=== PATIENT | male | born 1940 | race Caucasian/White ===

== ENCOUNTER 2020-04-17 16:40 | IRF | payer MEDICARE, SELFPAY ==
--- NOTE | ~2020-04-17 | XR_ITS ---
EXAMINATION: XR hip BI 2V w AP pelvis DATE: 04/19/2020 09:53 INDICATION: Bilateral hip pain. TECHNIQUE: An anteroposterior view of the pelvis and 2 views of each hip were obtained. COMPARISON: None. FINDINGS: There is dextrocurvature and severe spondylosis of lumbar spine. No fracture. There is mode rate osteoarthritis of the hips. An electrode overlies the sacrum. Surgical clips in the right upper quadrant are likely from cholecystectomy. IMPRESSION: 1. Moderate osteoarthritis of the hips. Reviewed, dictated and finalized at location A.
[2020-04-17 16:40] VITALS: BP 154/57; PULSE 63; RESP 20; TEMP 37.1; O2SAT 98; BMI 33.7
--- NOTE | 2020-04-17 17:32 | PC.NURSE ---
This patient, Andre Moore, was admitted to [facility] Room 221-01. Patient/family oriented to hospital policies and general routines including ID bracelet, bed and alarms, visiting hours, pain management, procedures, bathroom and other care routines, personal items, smoking policy, room service/diet, and visiting hours. Valuables list has been completed. Information on how to activate the Rapid Response Team has been discussed. Patient/Family are encouraged to report perceived risks to care and to ask questions if they do not understand what they are told or what they should do.
[2020-04-17 17:36] LABS: Glucose Point of Care 141 (65-105)
[2020-04-17 17:50] VITALS: BMI 32.5
[2020-04-17 19:51] LABS: Add Urine Microscopic? YES; Appearance Urine Clear (Clear); Bilirubin Urine Negative (Negative); Blood Urine Negative (Negative); Color Urine Straw (Yellow); Glucose Urine UA Negative (Negative); Ketones Urine Negative (Negative); Leukocyte Esterase Ur Trace LEU/UL (Negative); Nitrate Urine Negative (Negative); Protein Urine Negative (Negative); RBC Urine 0-2 /hpf (0-2); Specific Grav Ur 1.009 (1.001-1.035); Squamous Epithelial Cell Urine Rare /hpf (Few); Urobilinogen Urine Negative mg/dL (<2.0); WBC Urine 0-3 /hpf
[2020-04-17 21:49] LABS: Glucose Point of Care 188 (65-105)
[2020-04-17] MEDS: SERTRALINE HCL 50 MG TABLET 150 MG PO (21:53)
[2020-04-17] MEDS: METOPROLOL TARTRATE 50 MG TAB PO (21:54)
[2020-04-17] MEDS: metFORMIN HCL 500 MG TABLET PO (21:55)
[2020-04-17] MEDS: APIXABAN 5 MG TABLET PO (21:55)
[2020-04-17] MEDS: ATORVASTATIN 40 MG TABLET PO (21:55)
[2020-04-17] MEDS: GABAPENTIN 100 MG CAPSULE 200 MG PO (21:55)
[2020-04-17] MEDS: PRAMIPEXOLE 1 MG TABLET PO (21:55)
[2020-04-17] MEDS: CEFDINIR 300 MG CAPSULE BY MOUTH (21:55)
[2020-04-17 22:00] VITALS: BP 154/60; PULSE 64; RESP 18; TEMP 37.1; O2SAT 97
[2020-04-18 04:56] LABS: Basophils Absolute Auto 0.1 K/mm3 (0.0-0.1); Basophils Percent Auto 0.6 % (0.2-1.2); Eosinophils Absolute Auto 0.5 K/mm3 (0-0.3); Eosinophils Percent Auto 4.8 % (0-4.4); Hemoglobin 13.1 g/dL (14.0-18.0); Immature Granulocyte Absolute 0.08 K/mm3 (0.00-0.031); Immature Granulocyte Percent A 0.9 % (0-0.5); Lymphocytes Absolute Auto 2.22 K/mm3 (0.9-3.2); Lymphocytes Percent Auto 23.8 % (18.3-44.2); Mean Corpuscular Hemoglobin 30.8 pg (26-34); Mean Corpuscular Volume 96.5 fl (80-100); Monocytes Percent Auto 11.1 % (2.6-8.5); Neutrophils Absolute Auto 5.5 K/mm3 (1.3-6.7); Neutrophils Percent Auto 58.8 % (45.5-73.1); Platelet Count Result 147 k/mm3 (150-375); Red Blood Count 4.25 M/mm3 (4.6-6.20); White Blood Count 9.3 K/mm3 (4.5-10.0)
[2020-04-18 05:08] LABS: Blood Urea Nitrogen 48 mg/dL (9-20); Calcium 8.9 mg/dL (8.4-10.2); Carbon Dioxide 21 mmol/L (22-30); Chloride 105 mmol/L (98-107); Cholesterol 120 mg/dL (0-200); Estimated CRCL calculation 41 ml/min; Estimated Glomerular Filt Rate 42; Glucose 194 mg/dL (75-110); HDL Direct 42 mg/dL; Potassium 4.6 mmol/L (3.4-5.0); Sodium 131 mmol/L (137-145); Triglycerides 89 mg/dL (<150)
[2020-04-18 05:12] LABS: Hemoglobin A1C 7.1 % (<5.7)
[2020-04-18 05:19] LABS: LDL Cholesterol Direct 51 mg/dL
[2020-04-18 05:56] LABS: Glucose Point of Care 175 (65-105)
[2020-04-18 06:00] VITALS: BP 144/69; PULSE 57; RESP 18; TEMP 35.9; O2SAT 96
[2020-04-18] MEDS: metFORMIN HCL 500 MG TABLET PO ×2 (09:15→17:44)
[2020-04-18] MEDS: GABAPENTIN 100 MG CAPSULE 200 MG PO ×3 (09:16→17:43)
[2020-04-18] MEDS: lisinopriL 20 MG TABLET PO (09:16)
[2020-04-18] MEDS: ISOSORBIDE MONONITRATE 30 MG TAB.ER.24H BY MOUTH (09:16)
[2020-04-18] MEDS: CEFDINIR 300 MG CAPSULE BY MOUTH ×2 (09:16→22:21)
[2020-04-18] MEDS: APIXABAN 5 MG TABLET PO ×2 (09:16→22:20)
[2020-04-18] MEDS: SENNA/DOCUSATE SODIUM TABLET 1 TAB PO (09:16)
[2020-04-18] MEDS: polyethylene glycoL 3350 17 GM POWD.PACK PO (09:17)
[2020-04-18] MEDS: TOLNAFTATE 1% POWDER 45 GM BTL 1 APPLIC TOPICAL ×2 (09:17→22:23)
[2020-04-18 09:18] VITALS: PULSE 57
[2020-04-18] MEDS: METOPROLOL TARTRATE 50 MG TAB PO ×2 (09:18→22:21)
--- NOTE | 2020-04-18 11:00 | WPDREHABHP ---
H&P: HPI History of Present Illness Chief complaint: CVA Narrative: Andre Moore is a 80 year old male HISTORY OF PRESENT ILLNESS: The patient's primary rehab impairment category is stroke The etiologic diagnosis is ischemic stroke with left-sided hemiparesis I saw this patient [id number] on noon at 11:00 a.m. The patient is a 80-year-old the left-handed male with a prior medical history of paroxysmal atrial fibrillation previously on Eliquis about a year ago, hypertension, hyperlipidemia and TIA in 2019 along with type 2 diabetes mellitus who presented to an outside hospital in April 13, 2020 with possible stroke. The patient reported he was working outside in his yard when he noticed he was having difficulty speaking and left-sided weakness. Head CT ruled out any hemorrhage the patient was unable to get MRI due to metal implants in his bladder. Of note the patient self caths at home. NIH was 6 and received tPA. Then he was transferred to [facility] for further management. CTA showed atherosclerosis of distal internal carotid arteries with stenosis of the P2 segments of both right and left [employer] is but no acute occlusion CTA of the neck showed spondylosis at C4-5. EKG was normal. Neurology was consulted and he was started on aspirin on April 07 and Eliquis and April 15. The home lisinopril was restarted on April 16. He pass the swallowing evaluation he is on a regular texture with thin liquids. The patient was noted to have and a WBC count of 13,500 on April 16 and the patient was starter 7 for UTI. Physical examination reveals moderately severe left-sided weakness where the left upper extremities more involved than the leg left-sided neglect dysarthria which is resolving and balance issues. The rest of in seems like has been switched to cefdinir for few days The patient has not traveled outside the [place] or had contact with someone who is ill that has traveled outside the use in the past 21 days. The patient has not traveled to an area the [place] that is experiencing known transmission of the Coronavirus and has not had close personal contact with anyone that has. The patient does not have a fever. The patient is not experiencing lower respiratory illness symptoms. Therapy was initiated at the acute care facility and the patient transferred to us from [facility] on April 17, 2020 on FALLS OR SURGERIES: The patient has had no major surgeries in the 100 days prior to admission. They had no falls in the past year. They had no falls with injury in the past year. 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 Patient reported that the bedroom and bathrooms are in the main floor. He reported that he has home equipment for straight cane and is wheel walker from total knee replacement a few months ago. FAMILY HISTORY: At this point unknown but I will find out with the patient in my follow-up with her he remembers much about the family history PRIOR LEVEL OF FUNCTION: Eating was INDEPENDENT Oral Care was INDEPENDENT Toileting Hygiene was INDEPENDENT Shower/Bathing was INDEPENDENT Upper Body Dressing was INDEPENDENT Lower Body Dressing was INDEPENDENT Donning/Fossil Footwear was INDEPENDENT Rolling Left and Right was INDEPENDENT Sit t
[2020-04-18 12:07] LABS: Glucose Point of Care 108 (65-105)
[2020-04-18 14:00] VITALS: BP 138/47; PULSE 57; RESP 18; TEMP 37.2; O2SAT 92
--- NOTE | 2020-04-18 14:25 | PCSTNOTE ---
04/18/20: Reported pt. inability to sustain arousal to RN at 13:40 during my attempt to follow-up with pt. after AM evaluation.
[2020-04-18 15:11] VITALS: BMI 32.5
[2020-04-18 17:25] LABS: Glucose Point of Care 123 (65-105)
--- NOTE | 2020-04-18 18:50 | RPD ---
INDIVIDUALIZED PLAN OF CARE FOR Andre Moore Brief Synthesis of Pre-Admission Screen, Post-Admission Evaluation and Therapy Evaluations: The patient presents to rehab with a left ischemic stroke s/p tPA. Comorbidities include paroxysmal atrial fibrillation, left edenilson-paresis, left facial droop, hypertension, hyperlipidemia, type 2 diabetes mellitus, depression, benign prostatic hyperplasia, CAD, chronic kidney disease stage 3, GERD, nephrolithiasis, sleep apnea, obstructive SANTIAGO, restless leg syndrome, major depressive disorder, and peripheral neuropathy.The patient?s needs will be best met in an intensive program vs. at a lower level of care. The patient requires physician services for neurology services, medical oversight, and coordination of care. The patient requires nursing services for frequent neuro checks, anticoagulation therapy, medication management and education, pressure relief and skin care management, monitoring of labs, bowel and bladder training, diabetes management and education, and fall/safety precautions. Deficits include:ADLs, Balance, Endurance, Family Training/Education, Mobility, Pain Management, ROM, Safety, Speech, Strength, and Transfers. Scaler/Case Management for: Discharge Planning and Patient/Family Counseling Physical Therapy: 5 days per week for 90 minutes. Treatments may include: Therapeutic Exercise, Gait Training, Neuromuscular Re-education, Transfer Training, Community Reintegration, Bed Mobility, Patient/Family Education, Wheelchair Mobility Group Therapy/Concurrent Therapy Rationales: -Improve attention span during functional activities in a distracted environment. -Enhance problem solving and/or adequate judgment skills during functional activities in a distracted environment. -Promote increased safety awareness in a distracted environment to reduce fall risk with functional tasks, transfers, and ambulation to allow a more safe, self-sufficient return to the home environment. -Improve dynamic balance skills to promote safety and independence with functional activities in a distracted environment for maximum gain. Occupational Therapy: 5 days per week for 90 minutes. Treatments may include: Therapeutic Exercise, Therapeutic Activity, Cognitive Training, Self-Care Transfer Training, Community Reintegration, Home Management, Patient/Family Education, Wheelchair Mobility Training, Energy Conservation Training Group Therapy/Concurrent Therapy Rationales: -Allow therapist to observe and teach generalization and carry-over of skills learned in individual therapy. -Enhance problem solving and sequencing skills during therapeutic activities in a distracted environment. -Promote increased safety awareness in a realistic setting to reduce fall risk with functional tasks due to visual and verbal distractions. -Increase functional level with ADLs, ADL transfers and use of adaptive equipment through therapeutic activities with others while promoting safety to allow a more safe, self-sufficient return home. Medical Prognosis: Good Anticipated Length of Stay: 10 days Rehab Goals: Eating Goal: 06-Independent Oral Hygiene Goal: 06-Independent Toileting Hygiene Goal: 04-Supervision or Touching Assistance Shower/Bathe Self Goal: 04-Supervision or Touching Assistance Upper Body Dressing Goal: 06-Independent Lower Body Dressing Goal: 04-Supervision or Touching Assistance Putting On/Taking Off Footwear Goal: 04-Supervision or Touching Assistance Rolling Left and Right Goal: 04-Supervision or Touching Assistance Sit to Lying Goal: 05-Setup or Clean Up Assistance Lying to Sitting on Side of Bed Goal: 05-Setup or Clean Up Assistance Sit to Stand Goal: 05-Setup or Clean Up Assistance Chair/[id number]-[id number] Transfer Goal: 04-Supervision or Touching Assistance Toilet Transfer Goal: 04-Supervision or Touching Assistance Car Transfer Goal: 04-Supervision or Touching Assistance Walk 10' Goal: 04-Supervision or Touching Assistance Walk 50'
[2020-04-18 20:00] VITALS: PULSE 66; RESP 20; O2SAT 97
[2020-04-18 22:00] VITALS: BP 124/51; PULSE 54; RESP 20; TEMP 36.9; O2SAT 97
[2020-04-18] MEDS: ATORVASTATIN 40 MG TABLET PO (22:20)
[2020-04-18 22:21] VITALS: PULSE 66
[2020-04-18] MEDS: SERTRALINE HCL 50 MG TABLET 150 MG PO (22:22)
[2020-04-18] MEDS: PRAMIPEXOLE 1 MG TABLET PO (22:22)
[2020-04-18 23:26] LABS: Glucose Point of Care 162 (65-105)
[2020-04-19 06:00] VITALS: BP 126/48; PULSE 62; RESP 18; TEMP 36.7; O2SAT 97
[2020-04-19] MEDS: metFORMIN HCL 500 MG TABLET PO ×2 (06:37→18:24)
[2020-04-19 07:01] LABS: Glucose Point of Care 136 (65-105)
--- NOTE | 2020-04-19 09:16 | PCPTNOTE ---
Andre Moore was evaluated for a wheeled walker on 04/19/2020 by this physical therapist child welfare assistant. The wheeled walker will resolve patient's mobility limitations and will be used for ADL's within the home. The patient can safely use the wheeled walker. ?The wheeled walker will resolve the patient?s mobility deficits, including decreased endurance, strength and impaired balance.
[2020-04-19] MEDS: CEFDINIR 300 MG CAPSULE BY MOUTH (10:00)
[2020-04-19] MEDS: APIXABAN 5 MG TABLET PO ×2 (10:00→20:12)
[2020-04-19] MEDS: SENNA/DOCUSATE SODIUM TABLET 1 TAB PO (10:00)
[2020-04-19 10:01] VITALS: PULSE 62
[2020-04-19] MEDS: polyethylene glycoL 3350 17 GM POWD.PACK PO (10:01)
[2020-04-19] MEDS: ISOSORBIDE MONONITRATE 30 MG TAB.ER.24H BY MOUTH (10:01)
[2020-04-19] MEDS: GABAPENTIN 100 MG CAPSULE 200 MG PO ×3 (10:01→18:23)
[2020-04-19] MEDS: METOPROLOL TARTRATE 50 MG TAB PO ×2 (10:01→20:12)
[2020-04-19] MEDS: lisinopriL 20 MG TABLET PO (10:01)
[2020-04-19] MEDS: TOLNAFTATE 1% POWDER 45 GM BTL 1 APPLIC TOPICAL ×2 (10:02→20:14)
--- NOTE | 2020-04-19 11:33 | WPDNEURORHBP ---
Subjective Date/time seen: 04/19/20 11:33 Interval history: this 80-year-old left-handed gentleman is here after having the right hemispheric stroke with partial dysarthria and aphasic defect along with left-sided hemiparesis he has been complaining of bilateral hip pain which she has had even prior to having had stroke and his confirms that however requesting the x-rays of his bilateral hips which where going to order he denies any headache nausea vomiting chest pain shortness of breath fever chills sore Review of Systems Review of Systems: All systems reviewed & are unremarkable except as noted in HPI and below Functional Status Ambulation Ability Ability to Ambulate 10 Feet: Minimum Assistance X 1 Ability to Ambulate 50 Feet With 2 Turns: Minimum Assistance X 1 Ambulation Assistive Devices: Walker, Wheeled Exam Const: General: comfortable and no acute distress HENMT: General nose exam: Normal nares present Mouth: Yes moist mucous membranes Eyes: General: appearance normal, both eyes and all related structures Neck: Neck: supple and no JVD Resp: Effort & Inspection: normal respiratory effort Auscultation: clear to auscultation bilaterally Cardio: Rate: regular rate Rhythm: regular rhythm GI: GI Palp: Yes Soft to palpation Auscultation: normal bowel sounds Skin: General skin exam: normal color and no rashes or lesions noted Neuro: Other: patient is awake and alert well oriented has dysarthria mixed with the aphasic defect and moderately severe left-sided hemiparesis the range of motions of the hip are little bit painful however more comfortable with comparable examination performed earlier this morning and now but he is going to get the x-rays of his hip since his requested it Extrem: General: normal to inspection Psych: Mental Status: mental status grossly normal Objective Data Vital Signs Vital Signs: Vital Signs - 24 hr 04/18/20 14:00 04/18/20 20:00 04/18/20 22:00 Temperature 37.2 C 36.9 C Pulse Rate 57 L 66 54 L Respiratory Rate 18 20 20 Blood Pressure 138/47 L 124/51 L Pulse Oximetry 92 97 97 04/18/20 22:21 04/19/20 06:00 04/19/20 10:01 Temperature 36.7 C Pulse Rate 66 62 62 Respiratory Rate 18 Blood Pressure 126/48 L Pulse Oximetry 97 Intake/Output Intake/Output: Intake & Output 04/16/20 04/17/20 04/18/20 04/19/20 23:59 23:59 23:59 23:59 Intake Total 480 240 Output Total 1200 7706 7405 Balance -1148 -0231 -107 Meds/Results Medications: Active Medications Generic Name Dose Route Start Last Admin Trade Name Freq PRN Reason Stop Dose Admin Acetaminophen 650 mg 04/18/20 00:11 Tylenol Tablet PO Q4H PRN Pain Rated 1-3 Apixaban 5 mg 04/17/20 21:00 04/19/20 10:00 Eliquis PO 5 mg Q12HR MARVIN Administration Atorvastatin Calcium 40 mg 04/17/20 21:00 04/18/20 22:20 Lipitor PO 40 mg HS MARVIN Administration Gabapentin 200 mg 04/17/20 17:00 04/19/20 10:01 Neurontin PO 200 mg TID MARVIN Administration Glucagon 1 mg 04/17/20 17:29 Glucagon For Inj IM PRN PRN Hypoglycemia Protocol Glucose 15 gm 04/17/20 17:29 Glutose 15 PO PRN PRN Hypoglycemia Protocol Insulin Aspart 2 - 5 units 04/17/20 17:00 04/19/20 06:35 Novolog SUB-Q Not Given TIDWM MARVIN Protocol Isosorbide Mononitrate 30 mg 04/18/20 09:00 04/19/20 10:01 Imdur BY MOUTH 05/18/20 09:01 30 mg DAILY MARVIN Administration Lisinopril 20 mg 04/18/20 09:00 04/19/20 10:01 Prinivil PO 20 mg DAILY MARVIN Administration Metformin HCl 500 mg 04/17/20 17:00 04/19/20 06:37 Glucophage PO 500 mg BIDWM MARVIN Administration Metoprolol Tartrate 50 mg 04/17/20 21:00 04/19/20 10:01 Lopressor PO 50 mg Q12H MARVIN Administration Oxycodone HCl 5 mg 04/18/20 00:12 04/18/20 12:56 Roxicodone Ir Tablet PO 5 mg Q4H PRN Administration Pain Rated 4-10 Polyethylene Glycol 17
[2020-04-19 12:08] LABS: Glucose Point of Care 297 (65-105)
[2020-04-19] MEDS: INSULIN ASPART (*BKC) 100 UNITS/ML SUB-Q (12:47)
[2020-04-19 14:00] VITALS: BP 127/49; PULSE 63; RESP 18; TEMP 36.6; O2SAT 63
--- NOTE | 2020-04-19 15:48 | PCPTNOTE ---
Yoselyn Alicea PTA completed an inpatient rehab wheelchair evaluation on Andre Moore on 04/19/2020. The patient is unable to safely and independently ambulate household distances due to their current impairments. Their diagnosis is CVA with left Hemiparesis and their impairments include decreased strength, decreased endurance, decreased range of motion, decreased balance, lower extremity weakness, and ataxia. [f pt name]'s weight bearing status is weight-bearing as tolerated on the bilateral lower legs. The patient demonstrates significant functional mobility limitations that impair their ability to participate in mobility-related activities of daily living (MRADLs), including toileting, feeding, dressing, grooming, and bathing in the customary locations in the home. These limitations cannot be sufficiently resolved by the use of an appropriately fitted cane or walker. It is recommended that the patient utilize a wheelchair for functional mobility within the home in order to facilitate optimal safety, independence and participation in all MRADL's and adequately access their home environment on a regular basis. The patient's home provides adequate access between rooms, maneuvering space, and surfaces to accommodate the recommended wheelchair. The use of a wheelchair for functional mobility is strongly recommended and the patient is receptive to using the wheelchair. The use of this wheelchair will significantly improve the patient's ability to participate in MRADLS and the patient will use it on a regular basis in the home. This will facilitate optimal safety, independence, and participation. The patient has demonstrated sufficient physical and mental capabilities needed to safely propel a manual wheelchair that is provided in the home during a typical day. Recommended Wheelchair Frame: 20x18 Recommended Wheelchair Size: Standard Recommended Wheelchair Cushion: Standard Wheelchair Leg Recommendations: swing away elevating leg rests -Elevating legrests are recommended because the patient has significant edema of the lower extremities that requires an elevating legrest. - Anti-tippers are recommended due to patient demonstrating increased risk for falls. They would benefit from anti-tippers with added safety and stabilization. Yoselyn Nixon SOCIAL SECRETARY 04/19/2020 Evaluating Therapist Date I agree with and certify that the above recommendation is medically necessary. Referring Physician Date I agree with and certify that the above recommendation is medically necessary. Referring Physician Date
[2020-04-19 17:12] LABS: Glucose Point of Care 149 (65-105)
[2020-04-19] MEDS: SERTRALINE HCL 50 MG TABLET 150 MG PO (20:11)
[2020-04-19] MEDS: PRAMIPEXOLE 1 MG TABLET PO (20:11)
[2020-04-19 20:12] VITALS: PULSE 58
[2020-04-19] MEDS: ATORVASTATIN 40 MG TABLET PO (20:12)
[2020-04-19 22:00] VITALS: BP 130/50; PULSE 50; RESP 18; TEMP 36.5; O2SAT 97
[2020-04-19 22:21] LABS: Glucose Point of Care 176 (65-105)
[2020-04-20] VITALS (8 sets, daily range): BP systolic 126–139; BP diastolic 43–48; PULSE 54–72; RESP 18–22; TEMP 36–36.6; O2SAT 96–97
[2020-04-20 06:04] LABS: Glucose Point of Care 145 (65-105)
[2020-04-20] MEDS: GABAPENTIN 100 MG CAPSULE 200 MG PO ×3 (09:24→17:13)
[2020-04-20] MEDS: SENNA/DOCUSATE SODIUM TABLET 1 TAB PO (09:24)
[2020-04-20] MEDS: ISOSORBIDE MONONITRATE 30 MG TAB.ER.24H BY MOUTH (09:24)
[2020-04-20] MEDS: metFORMIN HCL 500 MG TABLET PO ×2 (09:24→17:14)
[2020-04-20] MEDS: APIXABAN 5 MG TABLET PO ×2 (09:24→20:30)
[2020-04-20] MEDS: TOLNAFTATE 1% POWDER 45 GM BTL 1 APPLIC TOPICAL ×2 (09:25→20:32)
[2020-04-20] MEDS: METOPROLOL TARTRATE 50 MG TAB PO ×2 (09:25→20:29)
[2020-04-20] MEDS: polyethylene glycoL 3350 17 GM POWD.PACK PO (09:25)
[2020-04-20] MEDS: lisinopriL 20 MG TABLET PO (09:25)
[2020-04-20 12:11] LABS: Glucose Point of Care 146 (65-105)
[2020-04-20] MEDS: HYDROCORTISONE 1% 30 GM CREAM 1 APPLIC TOPICAL ×2 (12:26→20:33)
--- NOTE | 2020-04-20 13:21 | WPDNEURORHBP ---
Subjective Date/time seen: 04/20/20 13:21 Interval history: this 80-year-old gentleman is here after having had a right-sided hand hemispheric stroke with mixed aphasia and left-sided hemiparesis the reason being most likely that he is left-handed his hip pain is better controlled however he does have significant osteoarthritis of bilateral hips and also significant is spondylosis of his lumbar spine which is most likely long-standing It does not complain of any headache nausea vomiting chest pain shortness of breath fever chills sore throat Review of Systems Review of Systems: All systems reviewed & are unremarkable except as noted in HPI and below Functional Status Ambulation Ability Ability to Ambulate 10 Feet: Minimum Assistance X 1 Ability to Ambulate 50 Feet With 2 Turns: Minimum Assistance X 1 Ability to Ambulate 150 Feet: Minimum Assistance X 1 Ambulation Assistive Devices: Walker, Wheeled Exam Const: General: comfortable and no acute distress HENMT: General nose exam: Normal nares present Mouth: Yes moist mucous membranes Eyes: General: appearance normal, both eyes and all related structures Neck: Neck: supple and no JVD Resp: Effort & Inspection: normal respiratory effort Auscultation: clear to auscultation bilaterally Cardio: Rate: regular rate Rhythm: regular rhythm Other: occasionally irregularly irregular rhythm GI: GI Palp: Yes Soft to palpation Auscultation: normal bowel sounds Skin: General skin exam: normal color and no rashes or lesions noted Neuro: Other: patient has mixed expressive aphasia and dysarthria with moderately severe left-sided hemiparesis Extrem: General: normal to inspection Psych: Mental Status: mental status grossly normal Objective Data Vital Signs Vital Signs: Vital Signs - 24 hr 04/19/20 14:00 04/19/20 20:12 04/19/20 22:00 Temperature 36.6 C 36.5 C Pulse Rate 63 58 L 50 L Respiratory Rate 18 18 Blood Pressure 127/49 L 130/50 L Pulse Oximetry 63 L 97 04/20/20 06:00 04/20/20 09:25 Temperature 36.0 C L Pulse Rate 62 62 Respiratory Rate 18 Blood Pressure 139/48 L Pulse Oximetry 97 Intake/Output Intake/Output: Intake & Output 04/17/20 04/18/20 04/19/20 04/20/20 23:59 23:59 23:59 23:59 Intake Total 480 720 240 Output Total 1200 2550 3200 4720 Balance -5166 -2231 -8050 -6010 Meds/Results Medications: Active Medications Generic Name Dose Route Start Last Admin Trade Name Freq PRN Reason Stop Dose Admin Acetaminophen 650 mg 04/18/20 00:11 Tylenol Tablet PO Q4H PRN Pain Rated 1-3 Apixaban 5 mg 04/17/20 21:00 04/20/20 09:24 Eliquis PO 5 mg Q12HR MARVIN Administration Atorvastatin Calcium 40 mg 04/17/20 21:00 04/19/20 20:12 Lipitor PO 40 mg HS MARVIN Administration Gabapentin 200 mg 04/17/20 17:00 04/20/20 12:27 Neurontin PO 200 mg TID MARVIN Administration Glucagon 1 mg 04/17/20 17:29 Glucagon For Inj IM PRN PRN Hypoglycemia Protocol Glucose 15 gm 04/17/20 17:29 Glutose 15 PO PRN PRN Hypoglycemia Protocol Hydrocortisone 1 applic 04/20/20 09:35 04/20/20 12:26 Hydrocortisone 1% Cream TOPICAL 1 applic Q12HR MARVIN Administration Insulin Aspart 2 - 5 units 04/17/20 17:00 04/20/20 12:26 Novolog SUB-Q Not Given TIDWM [facility] Protocol Isosorbide Mononitrate 30 mg 04/18/20 09:00 04/20/20 09:24 Imdur BY MOUTH 05/18/20 09:01 30 mg DAILY MARVIN Administration Lisinopril 20 mg 04/18/20 09:00 04/20/20 09:25 Prinivil PO 20 mg DAILY MARVIN Administration Metformin HCl 500 mg 04/17/20 17:00 04/20/20 09:24 Glucophage PO 500 mg BIDWM MARVIN Administration Metoprolol Tartrate 50 mg 04/17/20 21:00 04/20/20 09:25 Lopressor PO 50 mg Q12H MARVIN Administration Oxycodone HCl 5 mg 04/18/20 00:12 04/18/20 12:56 Roxicodone Ir Tablet PO 5 mg Q4H PRN Administration Pain Rated 4-10 Polyethylene Gl
--- NOTE | 2020-04-20 14:48 | PCCCNOTE ---
On 04/20/20, the student, [Neal Montemayor ], provided care and completed [facility] documentation on this patient. I have reviewed the student's documentation and agree with the findings.
[2020-04-20 16:53] LABS: Glucose Point of Care 106 (65-105)
[2020-04-20] MEDS: SERTRALINE HCL 50 MG TABLET 150 MG PO (20:29)
[2020-04-20] MEDS: ATORVASTATIN 40 MG TABLET PO (20:30)
[2020-04-20] MEDS: PRAMIPEXOLE 1 MG TABLET PO (20:31)
[2020-04-20 21:18] LABS: Glucose Point of Care 148 (65-105)
[2020-04-21] VITALS (9 sets, daily range): BP systolic 135–147; BP diastolic 46–65; PULSE 51–88; RESP 16–22; TEMP 35.1–37.1; O2SAT 93–99
[2020-04-21 07:16] LABS: Glucose Point of Care 131 (65-105)
[2020-04-21] MEDS: HYDROCORTISONE 1% 30 GM CREAM 1 APPLIC TOPICAL ×2 (09:21→20:23)
[2020-04-21] MEDS: METOPROLOL TARTRATE 50 MG TAB PO ×2 (09:22→20:24)
[2020-04-21] MEDS: polyethylene glycoL 3350 17 GM POWD.PACK PO (09:22)
[2020-04-21] MEDS: lisinopriL 20 MG TABLET PO (09:22)
[2020-04-21] MEDS: GABAPENTIN 100 MG CAPSULE 200 MG PO ×3 (09:22→17:25)
[2020-04-21] MEDS: ISOSORBIDE MONONITRATE 30 MG TAB.ER.24H BY MOUTH (09:22)
[2020-04-21] MEDS: metFORMIN HCL 500 MG TABLET PO ×2 (09:22→17:26)
[2020-04-21] MEDS: APIXABAN 5 MG TABLET PO ×2 (09:22→20:23)
[2020-04-21] MEDS: TOLNAFTATE 1% POWDER 45 GM BTL 1 APPLIC TOPICAL ×2 (09:23→20:26)
[2020-04-21] MEDS: SENNA/DOCUSATE SODIUM TABLET 1 TAB PO (09:23)
[2020-04-21 12:25] LABS: Glucose Point of Care 114 (65-105)
[2020-04-21 17:15] LABS: Glucose Point of Care 93 (65-105)
[2020-04-21] MEDS: SERTRALINE HCL 50 MG TABLET 150 MG PO (20:23)
[2020-04-21] MEDS: PRAMIPEXOLE 1 MG TABLET PO (20:24)
[2020-04-21] MEDS: ATORVASTATIN 40 MG TABLET PO (20:24)
[2020-04-21 21:24] LABS: Glucose Point of Care 139 (65-105)
[2020-04-22] VITALS (7 sets, daily range): BP systolic 121–177; BP diastolic 58–76; PULSE 52–74; RESP 18–22; TEMP 35.7–36.6; O2SAT 94–97
[2020-04-22 06:48] LABS: Glucose Point of Care 132 (65-105)
[2020-04-22] MEDS: SENNA/DOCUSATE SODIUM TABLET 1 TAB PO (09:13)
[2020-04-22] MEDS: APIXABAN 5 MG TABLET PO ×2 (09:13→21:42)
[2020-04-22] MEDS: GABAPENTIN 100 MG CAPSULE 200 MG PO ×3 (09:13→17:13)
[2020-04-22] MEDS: metFORMIN HCL 500 MG TABLET PO ×2 (09:13→17:13)
[2020-04-22] MEDS: lisinopriL 20 MG TABLET PO (09:14)
[2020-04-22] MEDS: METOPROLOL TARTRATE 50 MG TAB PO ×2 (09:14→21:43)
[2020-04-22] MEDS: ISOSORBIDE MONONITRATE 30 MG TAB.ER.24H BY MOUTH (09:14)
[2020-04-22] MEDS: polyethylene glycoL 3350 17 GM POWD.PACK PO (09:14)
[2020-04-22] MEDS: HYDROCORTISONE 1% 30 GM CREAM 1 APPLIC TOPICAL ×2 (09:15→21:43)
[2020-04-22] MEDS: TOLNAFTATE 1% POWDER 45 GM BTL 1 APPLIC TOPICAL ×2 (09:15→21:44)
--- NOTE | 2020-04-22 12:44 | WPDNEURORHBP ---
Subjective Date/time seen: 04/22/20 12:44 left hemiparesis with mixed dysphasia, spondylosis and bilateral hip arthritis Review of Systems Review of Systems: All systems reviewed & are unremarkable except as noted in HPI and below Functional Status Ambulation Ability Ability to Ambulate 10 Feet: Contact Guard Ability to Ambulate 50 Feet With 2 Turns: Contact Guard Ability to Ambulate 150 Feet: Contact Guard Ambulation Assistive Devices: Walker, Wheeled Exam Const: General: cooperative, comfortable and no acute distress HENMT: General nose exam: No nasal discharge present Mouth: Yes Normal oral and palatal mucosa present and Yes tongue normal Eyes: General: appearance normal, both eyes and all related structures Resp: Effort & Inspection: normal respiratory effort and able to speak in complete sentences Auscultation: clear to auscultation bilaterally Cardio: Rate: regular rate Rhythm: regular rhythm GI: Auscultation: normal bowel sounds Skin: General skin exam: no rashes or lesions noted Neuro: General: patient oriented x3 and moves all extremities Cranial nerves: Yes Equal, round and reactive pupils present, Yes Bilaterally intact EOM present and Yes Nystagmus not present Speech: dysarthria and Receptive aphasia present (mixed) Gait exam (Neuro): Unable to assess gait Motor exam (neuro): Abnormal motor strength present (left hemiparesis) Extrem: General: normal to inspection Psych: Appearance: grossly normal Objective Data Vital Signs Vital Signs: Vital Signs - 24 hr 04/21/20 14:00 04/21/20 20:24 04/21/20 21:24 Temperature 37.1 C Pulse Rate 88 88 51 L Respiratory Rate 20 17 Blood Pressure 147/65 H Pulse Oximetry 97 96 04/21/20 22:00 04/22/20 06:00 04/22/20 09:14 Temperature 36.6 C 36.0 C L Pulse Rate 65 74 74 Respiratory Rate 16 22 H Blood Pressure 135/46 L 151/76 H Pulse Oximetry 96 96 Intake/Output Intake/Output: Intake & Output 04/19/20 04/20/20 04/21/20 04/22/20 23:59 23:59 23:59 23:59 Intake Total 016 211 7887 960 Output Total 2172 5893 9455 7405 Zqzqryp -9710 -9050 -8370 -1640 Meds/Results Medications: Active Medications Generic Name Dose Route Start Last Admin Trade Name Freq PRN Reason Stop Dose Admin Acetaminophen 650 mg 04/18/20 00:11 Tylenol Tablet PO Q4H PRN Pain Rated 1-3 Apixaban 5 mg 04/17/20 21:00 04/22/20 09:13 Eliquis PO 5 mg Q12HR MARVIN Administration Atorvastatin Calcium 40 mg 04/17/20 21:00 04/21/20 20:24 Lipitor PO 40 mg HS MARVIN Administration Gabapentin 200 mg 04/17/20 17:00 04/22/20 09:13 Neurontin PO 200 mg TID MARVIN Administration Glucagon 1 mg 04/17/20 17:29 Glucagon For Inj IM PRN PRN Hypoglycemia Protocol Glucose 15 gm 04/17/20 17:29 Glutose 15 PO PRN PRN Hypoglycemia Protocol Hydrocortisone 1 applic 04/20/20 09:35 04/22/20 09:15 Hydrocortisone 1% Cream TOPICAL 1 applic Q12HR MARVIN Administration Insulin Aspart 2 - 5 units 04/17/20 17:00 04/22/20 09:19 Novolog SUB-Q Not Given TIDWM [facility] Protocol Isosorbide Mononitrate 30 mg 04/18/20 09:00 04/22/20 09:14 Imdur BY MOUTH 05/18/20 09:01 30 mg DAILY MARVIN Administration Lisinopril 20 mg 04/18/20 09:00 04/22/20 09:14 Prinivil PO 20 mg DAILY MARVIN Administration Metformin HCl 500 mg 04/17/20 17:00 04/22/20 09:13 Glucophage PO 500 mg BIDWM [facility]IN Administration Metoprolol Tartrate 50 mg 04/17/20 21:00 04/22/20 09:14 Lopressor PO 50 mg Q12H MARVIN Administration Oxycodone HCl 5 mg 04/18/20 00:12 04/18/20 12:56 Roxicodone Ir Tablet PO 5 mg Q4H PRN Administration Pain Rated 4-10 Polyethylene Glycol 17 gm 04/18/20 09:00 04/22/20 09:14 Miralax PO 17 gm DAILY MARVIN Administration Pramipexole Dihydrochloride 1 mg 04/17/20 21:00 04/21/20 20:24 Mirapex PO 1 mg HS [facility] Administration Senna/Docusate Sodi
[2020-04-22 13:05] LABS: Glucose Point of Care 97 (65-105)
[2020-04-22 17:17] LABS: Glucose Point of Care 163 (65-105)
[2020-04-22] MEDS: PRAMIPEXOLE 1 MG TABLET PO (21:42)
[2020-04-22] MEDS: ATORVASTATIN 40 MG TABLET PO (21:43)
[2020-04-22] MEDS: SERTRALINE HCL 50 MG TABLET 150 MG PO (21:44)
[2020-04-22 22:01] LABS: Glucose Point of Care 125 (65-105)
[2020-04-23] VITALS (8 sets, daily range): BP systolic 139–143; BP diastolic 51–62; PULSE 41–63; RESP 17–20; TEMP 35.3–36.6; O2SAT 97–100
[2020-04-23 06:10] LABS: Glucose Point of Care 113 (65-105)
[2020-04-23] MEDS: metFORMIN HCL 500 MG TABLET PO ×2 (09:10→17:22)
[2020-04-23] MEDS: GABAPENTIN 100 MG CAPSULE 200 MG PO ×3 (09:10→17:21)
[2020-04-23] MEDS: APIXABAN 5 MG TABLET PO ×2 (09:10→20:57)
[2020-04-23] MEDS: SENNA/DOCUSATE SODIUM TABLET 1 TAB PO (09:10)
[2020-04-23] MEDS: TOLNAFTATE 1% POWDER 45 GM BTL 1 APPLIC TOPICAL ×2 (09:11→20:57)
[2020-04-23] MEDS: ISOSORBIDE MONONITRATE 30 MG TAB.ER.24H BY MOUTH (09:11)
[2020-04-23] MEDS: HYDROCORTISONE 1% 30 GM CREAM 1 APPLIC TOPICAL ×2 (09:11→20:57)
[2020-04-23] MEDS: lisinopriL 20 MG TABLET PO (09:11)
[2020-04-23] MEDS: polyethylene glycoL 3350 17 GM POWD.PACK PO (09:11)
[2020-04-23] MEDS: METOPROLOL TARTRATE 50 MG TAB PO ×2 (09:36→20:56)
[2020-04-23 12:11] LABS: Glucose Point of Care 119 (65-105)
--- NOTE | 2020-04-23 13:14 | PCDIET ---
Nutrition Follow-Up Complete: Nutrition Diagnosis: Decreased sodium/fat needs related to cardiovascular disease as evidenced by hx CAD/CABG, CVA. Nutrition Goal: Patient to consume 75% of meals or greater. Goal met. Patient consuming 100% of meals on diabetic diet. Reports good appetite and denies concerns. CVA education completed this date. Recommend adding heart healthy component to present diet, as patient ordering high fat options. Last recorded weight is 103 kg. Recommend obtaining new weight. Bowel Motility: Last documented BM on 04/21/20. Labs Reviewed: Glu (113) Meds Noted: Novolog, Miralax, Senna, Glucophage Additional Notes: No documented skin breakdown. Will continue to monitor with same goal. Nutrition Monitoring and Evaluation: Follow up in 7 days.
[2020-04-23 17:37] LABS: Glucose Point of Care 171 (65-105)
[2020-04-23] MEDS: PRAMIPEXOLE 1 MG TABLET PO (20:56)
[2020-04-23] MEDS: SERTRALINE HCL 50 MG TABLET 150 MG PO (20:56)
[2020-04-23] MEDS: ATORVASTATIN 40 MG TABLET PO (20:57)
[2020-04-23 22:07] LABS: Glucose Point of Care 133 (65-105)
[2020-04-24] VITALS (7 sets, daily range): BP systolic 139–161; BP diastolic 57–71; PULSE 55–66; RESP 18–19; TEMP 35.4–36.8; O2SAT 97–100
[2020-04-24 07:13] LABS: Glucose Point of Care 113 (65-105)
[2020-04-24] MEDS: metFORMIN HCL 500 MG TABLET PO ×2 (10:10→17:31)
[2020-04-24] MEDS: APIXABAN 5 MG TABLET PO ×2 (10:10→20:12)
[2020-04-24] MEDS: GABAPENTIN 100 MG CAPSULE 200 MG PO ×3 (10:10→17:31)
[2020-04-24] MEDS: SENNA/DOCUSATE SODIUM TABLET 1 TAB PO (10:10)
[2020-04-24] MEDS: ISOSORBIDE MONONITRATE 30 MG TAB.ER.24H BY MOUTH (10:12)
[2020-04-24] MEDS: lisinopriL 20 MG TABLET PO (10:12)
[2020-04-24] MEDS: HYDROCORTISONE 1% 30 GM CREAM 1 APPLIC TOPICAL ×2 (10:12→20:12)
[2020-04-24] MEDS: polyethylene glycoL 3350 17 GM POWD.PACK PO (10:13)
[2020-04-24] MEDS: TOLNAFTATE 1% POWDER 45 GM BTL 1 APPLIC TOPICAL ×2 (10:13→20:16)
[2020-04-24] MEDS: METOPROLOL TARTRATE 50 MG TAB PO ×2 (10:13→20:13)
[2020-04-24 12:00] LABS: Glucose Point of Care 91 (65-105)
--- NOTE | 2020-04-24 14:05 | WPDNEURORHBP ---
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 he is doing fairly well Pina his precipitated in the technical conference /telephone confer the questions were answered he denies any headache nausea vomiting chest pain shortness of breath fever chills sore throat Review of Systems Review of Systems: All systems reviewed & are unremarkable except as noted in HPI and below Functional Status Ambulation Ability Ability to Ambulate 10 Feet: Standby Assistance Ability to Ambulate 50 Feet With 2 Turns: Standby Assistance Ability to Ambulate 150 Feet: Standby Assistance Ambulation Assistive Devices: Walker, Wheeled Transfers Ability Ability to Transfer In/Out of Chair: Standby Assistance Exam Const: General: comfortable and no acute distress HENMT: General nose exam: Normal nares present Mouth: Yes moist mucous membranes Eyes: General: appearance normal, both eyes and all related structures Neck: Neck: supple and no JVD Resp: Effort & Inspection: normal respiratory effort Auscultation: clear to auscultation bilaterally Cardio: Rate: regular rate Rhythm: regular rhythm GI: GI Palp: Yes Soft to palpation Auscultation: normal bowel sounds Urinary Catheter: Urinary Catheter: other ( patient does the self catheterization and also has spinal transplant for bladder dysfunction) Skin: General skin exam: normal color and no rashes or lesions noted Neuro: Other: patient is awake alert will oriented any distress and improving left-sided hemiparesis Extrem: General: normal to inspection Psych: Mental Status: mental status grossly normal Objective Data Vital Signs Vital Signs: Vital Signs - 24 hr 04/23/20 20:00 04/23/20 20:56 04/23/20 21:54 Temperature 35.3 C L Pulse Rate 62 61 61 Respiratory Rate 17 18 Blood Pressure 143/56 H Pulse Oximetry 97 98 04/23/20 21:55 04/24/20 03:00 04/24/20 06:00 Temperature 35.4 C L Pulse Rate 62 55 L 55 L Respiratory Rate 17 18 18 Blood Pressure 161/71 H Pulse Oximetry 97 97 100 04/24/20 10:13 Temperature Pulse Rate 55 L Respiratory Rate Blood Pressure Pulse Oximetry Intake/Output Intake/Output: Intake & Output 06/20/20 06/21/20 06/22/20 06/23/20 23:59 23:59 23:59 23:59 Intake Total 1080 1920 720 980 Output Total 9422 5000 3905 1555 [facility] -[phone] -[phone] -[phone] -570 Meds/Results Medications: Active Medications Generic Name Dose Route Start Last Admin Trade Name Freq PRN Reason Stop Dose Admin Acetaminophen 650 mg 04/18/20 00:11 Tylenol Tablet PO Q4H PRN Pain Rated 1-3 Apixaban 5 mg 04/17/20 21:00 04/24/20 10:10 Eliquis PO 5 mg Q12HR MARVIN Administration Atorvastatin Calcium 40 mg 04/17/20 21:00 04/23/20 20:57 Lipitor PO 40 mg HS MARVIN Administration Gabapentin 200 mg 04/17/20 17:00 04/24/20 10:10 Neurontin PO 200 mg TID MARVIN Administration Glucagon 1 mg 04/17/20 17:29 Glucagon For Inj IM PRN PRN Hypoglycemia Protocol Glucose 15 gm 04/17/20 17:29 Glutose 15 PO PRN PRN Hypoglycemia Protocol Hydrocortisone 1 applic 04/20/20 09:35 04/24/20 10:12 Hydrocortisone 1% Cream TOPICAL 1 applic Q12HR MARVIN Administration Insulin Aspart 2 - 5 units 04/17/20 17:00 04/24/20 12:07 Novolog SUB-Q Not Given TIDWM [facility] Protocol Isosorbide Mononitrate 30 mg 04/18/20 09:00 04/24/20 10:12 Imdur BY MOUTH 05/18/20 09:01 30 mg DAILY MAR[facility]IN Administration Lisinopril 20 mg 04/18/20 09:00 04/24/20 10:12 Prinivil PO 20 mg DAILY [facility]IN Administration Metformin HCl 500 mg 04/17/20 17:00 04/24/20 10:10 Glucophage PO 500 mg BIDWM [facility] Administration Metoprolol Tartrate 50 mg 04/17/20 21:00 04/24/20 10:13 Lopressor PO 50 mg Q12H [facility]VIN Administration Oxycodone HCl 5 mg 04/18/20 00:12 04/18/20
[2020-04-24 17:19] LABS: Glucose Point of Care 148 (65-105)
[2020-04-24] MEDS: SERTRALINE HCL 50 MG TABLET 150 MG PO (20:12)
[2020-04-24] MEDS: ATORVASTATIN 40 MG TABLET PO (20:12)
[2020-04-24] MEDS: PRAMIPEXOLE 1 MG TABLET PO (20:12)
[2020-04-24 20:40] LABS: Glucose Point of Care 113 (65-105)
[2020-04-25 05:21] LABS: Basophils Absolute Auto 0.1 K/mm3 (0.0-0.1); Basophils Percent Auto 0.9 % (0.2-1.2); Eosinophils Absolute Auto 0.6 K/mm3 (0-0.3); Eosinophils Percent Auto 7.2 % (0-4.4); Hematocrit 36.8 % (42.0-52.0); Hemoglobin 11.8 g/dL (14.0-18.0); Immature Granulocyte Absolute 0.07 K/mm3 (0.00-0.031); Immature Granulocyte Percent A 0.9 % (0-0.5); Lymphocytes Absolute Auto 2.95 K/mm3 (0.9-3.2); Lymphocytes Percent Auto 36.1 % (18.3-44.2); Mean Corpuscular HGB Conc 32.1 g/dl (32-36); Mean Corpuscular Hemoglobin 30.2 pg (26-34); Mean Corpuscular Volume 94.1 fl (80-100); Mean Platelet Volume 10.2 fl (7.4-10.4); Monocytes Absolute Auto 0.8 K/mm3 (0.1-0.6); Monocytes Percent Auto 9.9 % (2.6-8.5); Neutrophils Absolute Auto 3.7 K/mm3 (1.3-6.7); Platelet Count Result 193 k/mm3 (150-375); Red Blood Count 3.91 M/mm3 (4.6-6.20); Red Cell Distribution Width 13.3 % (11.5-14.5); White Blood Count 8.2 K/mm3 (4.5-10.0)
[2020-04-25 05:37] LABS: Blood Urea Nitrogen 37 mg/dL (9-20); Carbon Dioxide 23 mmol/L (22-30); Chloride 106 mmol/L (98-107); Estimated CRCL calculation 44 ml/min; Estimated Glomerular Filt Rate 45; Glucose 109 mg/dL (75-110); Sodium 135 mmol/L (137-145)
[2020-04-25 06:00] VITALS: BP 163/73; PULSE 58; RESP 18; TEMP 37.3; O2SAT 99
[2020-04-25 07:19] LABS: Glucose Point of Care 100 (65-105)
[2020-04-25] MEDS: metFORMIN HCL 500 MG TABLET PO ×2 (08:18→17:12)
[2020-04-25] MEDS: GABAPENTIN 100 MG CAPSULE 200 MG PO ×3 (08:18→17:12)
[2020-04-25 08:19] VITALS: PULSE 58
[2020-04-25] MEDS: APIXABAN 5 MG TABLET PO ×2 (08:19→20:41)
[2020-04-25] MEDS: METOPROLOL TARTRATE 50 MG TAB PO ×2 (08:19→20:41)
[2020-04-25] MEDS: polyethylene glycoL 3350 17 GM POWD.PACK PO (08:19)
[2020-04-25] MEDS: HYDROCORTISONE 1% 30 GM CREAM 1 APPLIC TOPICAL ×2 (08:20→20:44)
[2020-04-25] MEDS: SENNA/DOCUSATE SODIUM TABLET 1 TAB PO (08:20)
[2020-04-25] MEDS: lisinopriL 20 MG TABLET PO (08:20)
[2020-04-25] MEDS: ISOSORBIDE MONONITRATE 30 MG TAB.ER.24H BY MOUTH (08:20)
[2020-04-25] MEDS: TOLNAFTATE 1% POWDER 45 GM BTL 1 APPLIC TOPICAL (08:20)
--- NOTE | 2020-04-25 11:39 | WPDNEURORHBP ---
Subjective Date/time seen: 04/25/20 11:39 Interval history: this 80-year-old gentleman is here after having had stroke most likely related to his history of atrial fibrillation he is improving quite a bit as for as the left-sided hemiparesis is concerned he was questioning about the use of Eliquis I was able to explained to him to his satisfaction as it was started rightly so at the [facility] after the neurologist reviewed his case where he had stopped the Eliquis prior to having a little bit bleeding by the urologist and it was never re-initiated that was roughly about a year ago patient is doing fairly well denies any headache nausea vomiting chest pain shortness of breath fever chills sore throat Review of Systems Review of Systems: All systems reviewed & are unremarkable except as noted in HPI and below Functional Status Ambulation Ability Ability to Ambulate 10 Feet: Standby Assistance Ability to Ambulate 50 Feet With 2 Turns: Standby Assistance Ability to Ambulate 150 Feet: Standby Assistance Ambulation Assistive Devices: Walker, Wheeled Transfers Ability Ability to Transfer In/Out of Chair: Standby Assistance Exam Const: General: comfortable and no acute distress HENMT: General nose exam: Normal nares present Mouth: Yes moist mucous membranes Eyes: General: appearance normal, both eyes and all related structures Neck: Neck: supple and no JVD Resp: Effort & Inspection: normal respiratory effort Auscultation: clear to auscultation bilaterally Cardio: Rate: regular rate Rhythm: regular rhythm GI: GI Palp: Yes Soft to palpation Auscultation: normal bowel sounds Skin: General skin exam: normal color and no rashes or lesions noted Neuro: Other: the patient is awake and alert well oriented in time place and person left-sided hemiparesis is improving Extrem: General: normal to inspection Psych: Mental Status: mental status grossly normal Objective Data Vital Signs Vital Signs: Vital Signs - 24 hr 04/24/20 14:00 04/24/20 20:13 04/24/20 21:57 Temperature 36.7 C Pulse Rate 63 66 56 L Respiratory Rate 19 18 Blood Pressure 139/57 L Pulse Oximetry 97 98 04/24/20 22:00 04/25/20 06:00 04/25/20 08:19 Temperature 36.8 C 37.3 C Pulse Rate 56 L 58 L 58 L Respiratory Rate 19 18 Blood Pressure 142/62 H 163/73 H Pulse Oximetry 98 99 Intake/Output Intake/Output: Intake & Output 04/22/20 04/23/20 04/24/20 04/25/20 23:59 23:59 23:59 23:59 Intake Total 2955 926 7130 980 Output Total 5000 3900 3600 2050 [facility] -[phone] -[phone] -[phone] -7050 Meds/Results Medications: Active Medications Generic Name Dose Route Start Last Admin Trade Name Freq PRN Reason Stop Dose Admin Acetaminophen 650 mg 04/18/20 00:11 Tylenol Tablet PO Q4H PRN Pain Rated 1-3 Apixaban 5 mg 04/17/20 21:00 04/25/20 08:19 Eliquis PO 5 mg Q12HR [facility]VIN Administration Atorvastatin Calcium 40 mg 04/17/20 21:00 04/24/20 20:12 Lipitor PO 40 mg HS MARVIN Administration Gabapentin 200 mg 04/17/20 17:00 04/25/20 08:18 Neurontin PO 200 mg TID MARVIN Administration Glucagon 1 mg 04/17/20 17:29 Glucagon For Inj IM PRN PRN Hypoglycemia Protocol Glucose 15 gm 04/17/20 17:29 Glutose 15 PO PRN PRN Hypoglycemia Protocol Hydrocortisone 1 applic 04/20/20 09:35 04/25/20 08:20 Hydrocortisone 1% Cream TOPICAL 1 applic Q12HR [facility]IN Administration Insulin Aspart 2 - 5 units 04/17/20 17:00 04/25/20 07:34 Novolog SUB-Q Not Given TIDWM [facility] Protocol Isosorbide Mononitrate 30 mg 04/18/20 09:00 04/25/20 08:20 Imdur BY MOUTH 05/18/20 09:01 30 mg DAILY MARVIN Administration Lisinopril 20 mg 04/18/20 09:00 04/25/20 08:20 Prinivil PO 20 mg DAILY [facility] Administration Metformin HCl 500 mg 04/17/20 17:00 04/25/20 08:18 Glucophage PO 500 mg BIDWM [facility] Administration Metoprolol Tartrate 50 mg
[2020-04-25 11:46] LABS: Glucose Point of Care 105 (65-105)
[2020-04-25 14:00] VITALS: BP 122/54; PULSE 62; RESP 19; TEMP 36.5; O2SAT 99
[2020-04-25 17:10] LABS: Glucose Point of Care 153 (65-105)
[2020-04-25 20:41] VITALS: PULSE 61
[2020-04-25] MEDS: ATORVASTATIN 40 MG TABLET PO (20:41)
[2020-04-25] MEDS: PRAMIPEXOLE 1 MG TABLET PO (20:42)
[2020-04-25] MEDS: SERTRALINE HCL 50 MG TABLET 150 MG PO (20:42)
[2020-04-25 22:00] VITALS: BP 160/65; PULSE 61; RESP 18; TEMP 36.1; O2SAT 98
[2020-04-25 22:45] VITALS: PULSE 61; RESP 17; O2SAT 98
[2020-04-25 23:18] LABS: Glucose Point of Care 104 (65-105)
[2020-04-26 06:00] VITALS: BP 152/84; PULSE 66; RESP 18; TEMP 36.4; O2SAT 98
[2020-04-26 06:43] LABS: Glucose Point of Care 122 (65-105)
[2020-04-26] MEDS: GABAPENTIN 100 MG CAPSULE 200 MG PO ×3 (09:58→16:57)
[2020-04-26] MEDS: APIXABAN 5 MG TABLET PO ×2 (09:58→21:30)
[2020-04-26] MEDS: SENNA/DOCUSATE SODIUM TABLET 1 TAB PO (09:58)
[2020-04-26] MEDS: metFORMIN HCL 500 MG TABLET PO ×2 (09:58→16:57)
[2020-04-26 09:59] VITALS: PULSE 66
[2020-04-26] MEDS: lisinopriL 20 MG TABLET PO (09:59)
[2020-04-26] MEDS: polyethylene glycoL 3350 17 GM POWD.PACK PO (09:59)
[2020-04-26] MEDS: HYDROCORTISONE 1% 30 GM CREAM 1 APPLIC TOPICAL ×2 (09:59→21:30)
[2020-04-26] MEDS: METOPROLOL TARTRATE 50 MG TAB PO ×2 (09:59→21:29)
[2020-04-26] MEDS: ISOSORBIDE MONONITRATE 30 MG TAB.ER.24H BY MOUTH (09:59)
[2020-04-26] MEDS: TOLNAFTATE 1% POWDER 45 GM BTL 1 APPLIC TOPICAL ×2 (10:03→21:33)
[2020-04-26 14:00] VITALS: BP 142/76; PULSE 68; RESP 20; TEMP 36.8; O2SAT 100
--- NOTE | 2020-04-26 16:02 | PCCCNOTE ---
On 04/26/20, the student, [Neal Montemayor ], provided care and completed [facility] documentation on this patient. I have reviewed the student's documentation and agree with the findings.
[2020-04-26 17:29] LABS: Glucose Point of Care 127 (65-105)
[2020-04-26 17:29] LABS: Glucose Point of Care 113 (65-105)
[2020-04-26 20:30] VITALS: PULSE 49; RESP 19; O2SAT 99
[2020-04-26 21:10] LABS: Glucose Point of Care 109 (65-105)
[2020-04-26 21:29] VITALS: PULSE 68
[2020-04-26] MEDS: PRAMIPEXOLE 1 MG TABLET PO (21:29)
[2020-04-26] MEDS: ATORVASTATIN 40 MG TABLET PO (21:30)
[2020-04-26] MEDS: SERTRALINE HCL 50 MG TABLET 150 MG PO (21:31)
[2020-04-26 22:00] VITALS: BP 135/57; PULSE 53; RESP 20; TEMP 36.5; O2SAT 98
[2020-04-27] VITALS (7 sets, daily range): BP systolic 148–181; BP diastolic 60–67; PULSE 54–82; RESP 17–20; TEMP 36.5–36.9; O2SAT 97–100
[2020-04-27 06:37] LABS: Glucose Point of Care 112 (65-105)
[2020-04-27] MEDS: metFORMIN HCL 500 MG TABLET PO ×2 (09:50→16:48)
[2020-04-27] MEDS: GABAPENTIN 100 MG CAPSULE 200 MG PO ×3 (09:50→16:48)
[2020-04-27] MEDS: SENNA/DOCUSATE SODIUM TABLET 1 TAB PO (09:50)
[2020-04-27] MEDS: APIXABAN 5 MG TABLET PO ×2 (09:50→20:31)
[2020-04-27] MEDS: HYDROCORTISONE 1% 30 GM CREAM 1 APPLIC TOPICAL ×2 (09:51→20:30)
[2020-04-27] MEDS: lisinopriL 20 MG TABLET PO (09:51)
[2020-04-27] MEDS: ISOSORBIDE MONONITRATE 30 MG TAB.ER.24H BY MOUTH (09:51)
[2020-04-27] MEDS: METOPROLOL TARTRATE 50 MG TAB PO ×2 (09:51→20:30)
[2020-04-27] MEDS: TOLNAFTATE 1% POWDER 45 GM BTL 1 APPLIC TOPICAL ×2 (09:52→20:30)
--- NOTE | 2020-04-27 12:30 | WPDNEURORHBP ---
Subjective Date/time seen: 04/27/20 12:30 Interval history: this 80-year-old is here with left-sided hemiparesis is doing fairly well walking with little assistance overall improvement in his neurological state he denies any new complaints in quite happy with the care looking forward to be going home he denies any headache nausea vomiting chest pain shortness of breath fever chills sore throat Review of Systems Review of Systems: All systems reviewed & are unremarkable except as noted in HPI and below Functional Status Ambulation Ability Ability to Ambulate 10 Feet: Standby Assistance Ability to Ambulate 50 Feet With 2 Turns: Standby Assistance Ability to Ambulate 150 Feet: Standby Assistance Ambulation Assistive Devices: Walker, Wheeled Transfers Ability Ability to Transfer In/Out of Chair: Independent Exam Const: General: comfortable and no acute distress HENMT: General nose exam: Normal nares present Mouth: Yes moist mucous membranes Eyes: General: appearance normal, both eyes and all related structures Neck: Neck: supple and no JVD Resp: Effort & Inspection: normal respiratory effort Auscultation: clear to auscultation bilaterally Cardio: Rate: regular rate Rhythm: regular rhythm GI: GI Palp: Yes Soft to palpation Auscultation: normal bowel sounds Skin: General skin exam: normal color and no rashes or lesions noted Neuro: Other: the patient's neurological status is improving left-sided hemiparesis is significantly improved Extrem: General: normal to inspection Psych: Mental Status: mental status grossly normal Objective Data Vital Signs Vital Signs: Vital Signs - 24 hr 04/26/20 14:00 04/26/20 20:30 04/26/20 21:29 Temperature 36.8 C Pulse Rate 68 49 L 68 Respiratory Rate 20 19 Blood Pressure 142/76 H Pulse Oximetry 100 99 04/26/20 22:00 04/27/20 03:33 04/27/20 06:00 Temperature 36.5 C 36.6 C Pulse Rate 53 L 57 L 54 L Respiratory Rate 20 18 20 Blood Pressure 135/57 L 181/63 H Pulse Oximetry 98 97 99 04/27/20 09:51 Temperature Pulse Rate 62 Respiratory Rate Blood Pressure Pulse Oximetry Intake/Output Intake/Output: Intake & Output 04/24/20 04/25/20 04/26/20 04/27/20 23:59 23:59 23:59 23:59 Intake Total 2460 3140 720 720 Output Total 3600 3550 4000 2850 [facility] 1140 -[phone] -2130 Meds/Results Medications: Active Medications Generic Name Dose Route Start Last Admin Trade Name Freq PRN Reason Stop Dose Admin Acetaminophen 650 mg 04/18/20 00:11 Tylenol Tablet PO Q4H PRN Pain Rated 1-3 Apixaban 5 mg 04/17/20 21:00 04/27/20 09:50 Eliquis PO 5 mg Q12HR [facility]IN Administration Atorvastatin Calcium 40 mg 04/17/20 21:00 04/26/20 21:30 Lipitor PO 40 mg HS MARVIN Administration Gabapentin 200 mg 04/17/20 17:00 04/27/20 09:50 Neurontin PO 200 mg TID MARVIN Administration Glucagon 1 mg 04/17/20 17:29 Glucagon For Inj IM PRN PRN Hypoglycemia Protocol Glucose 15 gm 04/17/20 17:29 Glutose 15 PO PRN PRN Hypoglycemia Protocol Hydrocortisone 1 applic 04/20/20 09:35 04/27/20 09:51 Hydrocortisone 1% Cream TOPICAL 1 applic Q12HR [facility]VIN Administration Isosorbide Mononitrate 30 mg 04/18/20 09:00 04/27/20 09:51 Imdur BY MOUTH 05/18/20 09:01 30 mg DAILY [facility]IN Administration Lisinopril 20 mg 04/18/20 09:00 04/27/20 09:51 Prinivil PO 20 mg DAILY [facility] Administration Metformin HCl 500 mg 04/17/20 17:00 04/27/20 09:50 Glucophage PO 500 mg BIDWM [facility] Administration Metoprolol Tartrate 50 mg 04/17/20 21:00 04/27/20 09:51 Lopressor PO 50 mg Q12H [facility] Administration Oxycodone HCl 5 mg 04/18/20 00:12 04/18/20 12:56 Roxicodone Ir Tablet PO 5 mg Q4H PRN Administration Pain Rated 4-10 Polyethylene Glycol 17 gm 04/18/20 09:00 04/27/20 09:52 Miralax PO Not Given DAILY [facility] Pramipexole Dihydrochloride 1 mg 04/17/20
[2020-04-27 17:11] LABS: Glucose Point of Care 103 (65-105)
[2020-04-27] MEDS: SERTRALINE HCL 50 MG TABLET 150 MG PO (20:25)
[2020-04-27] MEDS: PRAMIPEXOLE 1 MG TABLET PO (20:28)
[2020-04-27] MEDS: ATORVASTATIN 40 MG TABLET PO (20:30)
[2020-04-28] VITALS (8 sets, daily range): BP systolic 151–180; BP diastolic 57–76; PULSE 51–62; RESP 17–20; TEMP 36.5–36.9; O2SAT 96–98
[2020-04-28 07:05] LABS: Glucose Point of Care 113 (65-105)
[2020-04-28] MEDS: METOPROLOL TARTRATE 50 MG TAB PO ×2 (09:16→20:27)
[2020-04-28] MEDS: SENNA/DOCUSATE SODIUM TABLET 1 TAB PO (09:16)
[2020-04-28] MEDS: GABAPENTIN 100 MG CAPSULE 200 MG PO ×3 (09:16→17:15)
[2020-04-28] MEDS: metFORMIN HCL 500 MG TABLET PO ×2 (09:16→17:15)
[2020-04-28] MEDS: ISOSORBIDE MONONITRATE 30 MG TAB.ER.24H BY MOUTH (09:16)
[2020-04-28] MEDS: lisinopriL 20 MG TABLET PO (09:16)
[2020-04-28] MEDS: HYDROCORTISONE 1% 30 GM CREAM 1 APPLIC TOPICAL ×2 (09:16→20:28)
[2020-04-28] MEDS: APIXABAN 5 MG TABLET PO ×2 (09:16→20:27)
[2020-04-28] MEDS: TOLNAFTATE 1% POWDER 45 GM BTL 1 APPLIC TOPICAL ×2 (09:17→20:28)
[2020-04-28] MEDS: polyethylene glycoL 3350 17 GM POWD.PACK PO (09:17)
--- NOTE | 2020-04-28 15:56 | WPDNEURORHBP ---
Subjective Date/time seen: 04/28/20 15:56 Interval history: this 80-year-old gentleman is recuperating from the stroke and his left hemiparesis has significantly improved he is walking quite a bit. He mentions that since the stroke he has periodic stool incontinence superimposed on the urinary issues for which he is on self catheterization he denies any headache nausea vomiting chest pain shortness of breath fever chills or sore throat Review of Systems Review of Systems: All systems reviewed & are unremarkable except as noted in HPI and below Functional Status Ambulation Ability Ability to Ambulate 10 Feet: Independent Ability to Ambulate 50 Feet With 2 Turns: Independent Ability to Ambulate 150 Feet: Standby Assistance Ambulation Assistive Devices: None Transfers Ability Ability to Transfer In/Out of Chair: Standby Assistance Exam Const: General: comfortable and no acute distress HENMT: General nose exam: Normal nares present Mouth: Yes moist mucous membranes Eyes: General: appearance normal, both eyes and all related structures Neck: Neck: supple and no JVD Resp: Effort & Inspection: normal respiratory effort Auscultation: clear to auscultation bilaterally Cardio: Rate: regular rate Rhythm: regular rhythm GI: GI Palp: Yes Soft to palpation Auscultation: normal bowel sounds Skin: General skin exam: normal color and no rashes or lesions noted Neuro: Other: speech language functions are normal cranial exam shows normal left-sided weakness has significantly improved Extrem: General: normal to inspection Psych: Mental Status: mental status grossly normal Objective Data Vital Signs Vital Signs: Vital Signs - 24 hr 04/27/20 20:30 04/27/20 22:00 04/27/20 23:00 Temperature 36.5 C Pulse Rate 70 56 L 55 L Respiratory Rate 19 17 Blood Pressure 173/60 H Pulse Oximetry 97 97 04/28/20 01:25 04/28/20 03:30 04/28/20 06:00 Temperature 36.6 C Pulse Rate 59 L 62 54 L Respiratory Rate 17 18 18 Blood Pressure 171/76 H Pulse Oximetry 97 97 97 04/28/20 09:16 04/28/20 14:00 Temperature 36.5 C Pulse Rate 54 L 59 L Respiratory Rate 18 Blood Pressure 151/57 H Pulse Oximetry 98 Intake/Output Intake/Output: Intake & Output 04/25/20 04/26/20 04/27/20 04/28/20 23:59 23:59 23:59 23:59 Intake Total 3140 720 1200 740 Output Total 6980 4000 3200 Jnmpnnu -167 -1912 -4845 740 Meds/Results Medications: Active Medications Generic Name Dose Route Start Last Admin Trade Name Freq PRN Reason Stop Dose Admin Acetaminophen 650 mg 04/18/20 00:11 Tylenol Tablet PO Q4H PRN Pain Rated 1-3 Apixaban 5 mg 04/17/20 21:00 04/28/20 09:16 Eliquis PO 5 mg Q12HR [facility]VIN Administration Atorvastatin Calcium 40 mg 04/17/20 21:00 04/27/20 20:30 Lipitor PO 40 mg HS MARVIN Administration Gabapentin 200 mg 04/17/20 17:00 04/28/20 12:23 Neurontin PO 200 mg TID MARVIN Administration Glucagon 1 mg 04/17/20 17:29 Glucagon For Inj IM PRN PRN Hypoglycemia Protocol Glucose 15 gm 04/17/20 17:29 Glutose 15 PO PRN PRN Hypoglycemia Protocol Hydrocortisone 1 applic 04/20/20 09:35 04/28/20 09:16 Hydrocortisone 1% Cream TOPICAL 1 applic Q12HR MARVIN Administration Isosorbide Mononitrate 30 mg 04/18/20 09:00 04/28/20 09:16 Imdur BY MOUTH 05/18/20 09:01 30 mg DAILY [facility]VIN Administration Lisinopril 20 mg 04/18/20 09:00 04/28/20 09:16 Prinivil PO 20 mg DAILY [facility]VIN Administration Metformin HCl 500 mg 04/17/20 17:00 04/28/20 09:16 Glucophage PO 500 mg BIDWM [facility] Administration Metoprolol Tartrate 50 mg 04/17/20 21:00 04/28/20 09:16 Lopressor PO 50 mg Q12H MARVIN Administration Oxycodone HCl 5 mg 04/18/20 00:12 04/18/20 12:56 Roxicodone Ir Tablet PO 5 mg Q4H PRN Administration Pain Rated 4-10 Polyethylene Glycol 17 gm 04/18/20 09:00 04/28/20 09:17 Miralax PO 17 g
[2020-04-28 19:11] LABS: Glucose Point of Care 138 (65-105)
[2020-04-28] MEDS: SERTRALINE HCL 50 MG TABLET 150 MG PO (20:27)
[2020-04-28] MEDS: PRAMIPEXOLE 1 MG TABLET PO (20:27)
[2020-04-28] MEDS: ATORVASTATIN 40 MG TABLET PO (20:27)
[2020-04-29] VITALS (7 sets, daily range): BP systolic 151–163; BP diastolic 60–70; PULSE 50–62; RESP 16–19; TEMP 36.2–36.6; O2SAT 94–99
[2020-04-29 06:13] LABS: Glucose Point of Care 103 (65-105)
--- NOTE | 2020-04-29 07:54 | WPDGICN ---
Assessment and Plan Assessment and plan (1) Stool incontinence: Code(s): R15.9 - Full incontinence of feces Status: Acute Assessment and Plan: Release of stool after self catheterization appears to be some kind of reflux response. Patient appears to have good control bowel habits otherwise. At the present time we will try fiber supplementation to see of bulking up the stool as any benefit and decrease this response. Should symptoms persist further evaluation within elective outpatient colonoscopy may need to be considered. 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 Self catheterization been in progress for many years period and is likely to continue. (3) Atrial fibrillation: Code(s): I48.91 - Unspecified atrial fibrillation Status: Acute (4) Stroke: Code(s): I63.9 - Cerebral infarction, unspecified Status: Acute (5) Left hemiparesis: Code(s): G81.94 - Hemiplegia, unspecified affecting left nondominant side Status: Acute (6) Chronic kidney disease: Code(s): N18.9 - Chronic kidney disease, unspecified Status: Acute GI Consult Note Consult date/time: 04/29/20 07:54 HPI: Anrde Moore is a 80 year old male seen in evaluation at the request of Dr. Bedolla. Patient maye the rehab unit after recent CVA. The patient has a long history of atrial fibrillation previously on Eliquis anticoagulation along with hypertension hyperlipidemia and a TIA. He has been treated with diabetes for diabetes mellitus. Patient had a CVA approximately 2 weeks ago with resultant left-sided hemiparesis that is had gradual improvement. He is now on rehabilitation service. Patient reports that he has had a straight cath himself after a TURP for many years. After the CVA he notes that when he sits straight caths himself he will pass a small amount of stool in voluntarily. Typically a several tbsp full size. Patient denies any abdominal pain. He denies any bleeding. He denies abdominal cramping. His bowel habits otherwise are somewhat loose. But without much difficulty. He maintains good control of stools and typical manner. Although he does notice that he has to go to the bathroom quickly when the urge arises. Review of Systems Review of Systems: All systems reviewed & are unremarkable except as noted in HPI and below PMFSH Past Medical History Medical History Arthritis Atrial fibrillation Bilateral hip pain Bladder dysfunction CAD (coronary artery disease) Chronic kidney disease Diabetes mellitus Hyperlipemia Hypertension Lumbar spondylosis Osteoarthritis of both hips Surgical History Surgical History H/O adenoidectomy History of cardiac cath History of inguinal herniorrhaphy History of tonsillectomy Family History Family History Father , lived to age 50 Diabetes mellitus Heart disease Mother , lived until her 80's Pancreatic cancer Sibling Breast cancer Sibling Diabetes mellitus Uterine cancer Sibling Diabetes mellitus Heart problem Other Family history of alcoholism Family history of cardiovascular disease Family history of heart disease in male family member before age 55 Social History Social History Smoking status: Former smoker Second hand tobacco smoke exposure: No Smoking end date: 04/17/20 Alcohol intake: former Substance use: never Spiritual care concerns: No Meds Home Medications and Allergies Home Medications Medication Instructions Recorded Confirmed Type Omnicef 300 mg BYMOUTH Q12-24H 04/17/20 04/17/20 History Tylenol 2 ta
[2020-04-29] MEDS: APIXABAN 5 MG TABLET PO ×2 (09:20→20:22)
[2020-04-29] MEDS: metFORMIN HCL 500 MG TABLET PO ×2 (09:20→17:37)
[2020-04-29] MEDS: GABAPENTIN 100 MG CAPSULE 200 MG PO ×3 (09:21→17:37)
[2020-04-29] MEDS: SENNA/DOCUSATE SODIUM TABLET 1 TAB PO (09:21)
[2020-04-29] MEDS: TOLNAFTATE 1% POWDER 45 GM BTL 1 APPLIC TOPICAL ×2 (09:22→20:26)
[2020-04-29] MEDS: ISOSORBIDE MONONITRATE 30 MG TAB.ER.24H BY MOUTH (09:22)
[2020-04-29] MEDS: lisinopriL 20 MG TABLET PO (09:22)
[2020-04-29] MEDS: calcium polycarbophiL 625 MG TABLET 1250 MG PO ×2 (09:22→17:36)
[2020-04-29] MEDS: METOPROLOL TARTRATE 50 MG TAB PO (09:25)
--- NOTE | 2020-04-29 17:20 | WPDNEURORHBP ---
Subjective Date/time seen: 04/29/20 17:20 Interval history: this 80 old lobe gentleman is here after having had right hemispheric stroke with left-sided hemiparesis from which he is improving his concern about his blood pressure with with a past 24 hours has been high so I have adjusted the medication will watch the blood pressure and heart rate at this point heart rate is running above 50 he denies any headache nausea vomiting chest pain shortness of breath fever chills sore throat Review of Systems Review of Systems: All systems reviewed & are unremarkable except as noted in HPI and below Functional Status Ambulation Ability Ability to Ambulate 10 Feet: Independent Ability to Ambulate 50 Feet With 2 Turns: Independent Ability to Ambulate 150 Feet: Independent Ambulation Assistive Devices: None Transfers Ability Ability to Transfer In/Out of Chair: Independent Exam Const: General: comfortable and no acute distress HENMT: General nose exam: Normal nares present Mouth: Yes moist mucous membranes Eyes: General: appearance normal, both eyes and all related structures Neck: Neck: supple and no JVD Resp: Effort & Inspection: normal respiratory effort Auscultation: clear to auscultation bilaterally Cardio: Rate: regular rate Rhythm: regular rhythm GI: GI Palp: Yes Soft to palpation Auscultation: normal bowel sounds Skin: General skin exam: normal color and no rashes or lesions noted Neuro: Other: remains awake and alert well oriented time and improving generalized weakness Extrem: General: normal to inspection Psych: Mental Status: mental status grossly normal Objective Data Vital Signs Vital Signs: Vital Signs - 24 hr 04/28/20 20:27 04/28/20 21:11 04/28/20 22:00 Temperature 36.9 C Pulse Rate 60 57 L 51 L Respiratory Rate 18 20 Blood Pressure 180/75 H Pulse Oximetry 96 98 04/29/20 01:36 04/29/20 06:00 04/29/20 09:25 Temperature 36.6 C Pulse Rate 52 L 50 L 60 Respiratory Rate 16 19 Blood Pressure 161/70 H Pulse Oximetry 94 98 04/29/20 14:00 Temperature 36.2 C L Pulse Rate 59 L Respiratory Rate 18 Blood Pressure 163/60 H Pulse Oximetry 99 Intake/Output Intake/Output: Intake & Output 04/26/20 04/27/20 04/28/20 04/29/20 23:59 23:59 23:59 23:59 Intake Total 720 1200 1220 740 Output Total 4000 3200 350 Balance -3280 -2000 870 740 Meds/Results Medications: Active Medications Generic Name Dose Route Start Last Admin Trade Name Freq PRN Reason Stop Dose Admin Acetaminophen 650 mg 04/18/20 00:11 Tylenol Tablet PO Q4H PRN Pain Rated 1-3 Apixaban 5 mg 04/17/20 21:00 04/29/20 09:20 Eliquis PO 5 mg Q12HR MARVIN Administration Atorvastatin Calcium 40 mg 04/17/20 21:00 04/28/20 20:27 Lipitor PO 40 mg HS MARVIN Administration Calcium Polycarbophil 1,250 mg 04/29/20 09:00 04/29/20 09:22 Fiber Con PO 1,250 mg BID MARVIN Administration Gabapentin 200 mg 04/17/20 17:00 04/29/20 13:23 Neurontin PO 200 mg TID [facility]IN Administration Glucagon 1 mg 04/17/20 17:29 Glucagon For Inj IM PRN PRN Hypoglycemia Protocol Glucose 15 gm 04/17/20 17:29 Glutose 15 PO PRN PRN Hypoglycemia Protocol Hydrocortisone 1 applic 04/20/20 09:35 04/29/20 09:23 Hydrocortisone 1% Cream TOPICAL Not Given Q12HR [facility] Isosorbide Mononitrate 30 mg 04/18/20 09:00 04/29/20 09:22 Imdur BY MOUTH 05/18/20 09:01 30 mg DAILY [facility] Administration Lisinopril 20 mg 04/18/20 09:00 04/29/20 09:22 Prinivil PO 20 mg DAILY [facility] Administration Metformin HCl 500 mg 04/17/20 17:00 04/29/20 09:20 Glucophage PO 500 mg BIDWM [facility] Administration Metoprolol Tartrate 100 mg 04/29/20 21:00 Lopressor PO Q12HR [facility] Oxycodone HCl 5 mg 04/18/20 00:12 04/18/20 12:56 Roxicodone Ir Tablet PO 5 mg Q4H PRN Administration Pain Rated 4-10 Pramipexole Dihydrochloride 1 mg 0
[2020-04-29 17:40] LABS: Glucose Point of Care 177 (65-105)
[2020-04-29] MEDS: METOPROLOL TARTRATE 50 MG TAB 100 MG PO (20:23)
[2020-04-29] MEDS: SERTRALINE HCL 50 MG TABLET 150 MG PO (20:23)
[2020-04-29] MEDS: ATORVASTATIN 40 MG TABLET PO (20:23)
[2020-04-29] MEDS: PRAMIPEXOLE 1 MG TABLET PO (20:23)
[2020-04-29] MEDS: HYDROCORTISONE 1% 30 GM CREAM 1 APPLIC TOPICAL (20:25)
[2020-04-30] VITALS (7 sets, daily range): BP systolic 147–170; BP diastolic 59–61; PULSE 58–68; RESP 16–21; TEMP 36.4–36.5; O2SAT 94–97
[2020-04-30 07:01] LABS: Glucose Point of Care 111 (65-105)
[2020-04-30] MEDS: metFORMIN HCL 500 MG TABLET PO ×2 (08:53→17:08)
[2020-04-30] MEDS: ISOSORBIDE MONONITRATE 30 MG TAB.ER.24H BY MOUTH (08:54)
[2020-04-30] MEDS: SENNA/DOCUSATE SODIUM TABLET 1 TAB PO (08:54)
[2020-04-30] MEDS: calcium polycarbophiL 625 MG TABLET 1250 MG PO ×2 (08:54→17:08)
[2020-04-30] MEDS: lisinopriL 20 MG TABLET PO (08:54)
[2020-04-30] MEDS: APIXABAN 5 MG TABLET PO ×2 (08:54→20:27)
[2020-04-30] MEDS: GABAPENTIN 100 MG CAPSULE 200 MG PO ×3 (08:54→17:08)
[2020-04-30] MEDS: TOLNAFTATE 1% POWDER 45 GM BTL 1 APPLIC TOPICAL ×2 (08:55→20:27)
[2020-04-30] MEDS: METOPROLOL TARTRATE 50 MG TAB 100 MG PO ×2 (08:55→20:27)
[2020-04-30] MEDS: HYDROCORTISONE 1% 30 GM CREAM 1 APPLIC TOPICAL ×2 (08:55→20:27)
--- NOTE | 2020-04-30 09:08 | WPDGIPROGNO ---
Progress Note: A&P Additional Plan Patient feels much better today. States he had no episodes of loss of bowel control yesterday. Physical exam reveals abdomen to be benign soft and nontender. Impression 1. Episodes of fecal incontinence. Appears to be resolving. Plan is to continue fiber supplementation. Previous MiraLax laxative will be discontinued. Is also possible that metformin may contribute to alteration in his bowel habits. Plan is to continue fiber supplements and observe over the next couple days. It has been 10 years since his last colonoscopy screening colonoscopy electively as an outpatient should be considered. Subjective Date/time seen: 04/30/20 09:08 Objective Data Vital Signs Vital Signs: Vital Signs - 24 hr 04/29/20 09:25 04/29/20 14:00 04/29/20 20:23 Temperature 36.2 C L Pulse Rate 60 59 L 62 Respiratory Rate 18 Blood Pressure 163/60 H Pulse Oximetry 99 04/29/20 21:56 04/29/20 22:00 04/30/20 02:10 Temperature 36.5 C Pulse Rate 57 L 61 63 Respiratory Rate 19 18 17 Blood Pressure 151/63 H Pulse Oximetry 94 99 94 04/30/20 06:00 04/30/20 08:55 Temperature 36.5 C Pulse Rate 66 68 Respiratory Rate 20 Blood Pressure 170/61 H Pulse Oximetry 97 Intake/Output Intake/Output: Intake & Output 04/27/20 04/28/20 04/29/20 04/30/20 23:59 23:59 23:59 23:59 Intake Total 1200 1220 1220 400 Output Total 3200 350 350 300 Balance -2000 870 870 100 Meds/Results Medications: Active Medications Generic Name Dose Route Start Last Admin Trade Name Freq PRN Reason Stop Dose Admin Acetaminophen 650 mg 04/18/20 00:11 Tylenol Tablet PO Q4H PRN Pain Rated 1-3 Apixaban 5 mg 04/17/20 21:00 04/30/20 08:54 Eliquis PO 5 mg Q12HR MARVIN Administration Atorvastatin Calcium 40 mg 04/17/20 21:00 04/29/20 20:23 Lipitor PO 40 mg HS MARVIN Administration Calcium Polycarbophil 1,250 mg 04/29/20 09:00 04/30/20 08:54 Fiber Con PO 1,250 mg BID MARVIN Administration Gabapentin 200 mg 04/17/20 17:00 04/30/20 08:54 Neurontin PO 200 mg TID MARVIN Administration Glucagon 1 mg 04/17/20 17:29 Glucagon For Inj IM PRN PRN Hypoglycemia Protocol Glucose 15 gm 04/17/20 17:29 Glutose 15 PO PRN PRN Hypoglycemia Protocol Hydrocortisone 1 applic 04/20/20 09:35 04/30/20 08:55 Hydrocortisone 1% Cream TOPICAL 1 applic Q12HR MARVIN Administration Isosorbide Mononitrate 30 mg 04/18/20 09:00 04/30/20 08:54 Imdur BY MOUTH 05/18/20 09:01 30 mg DAILY MARVIN Administration Lisinopril 20 mg 04/18/20 09:00 04/30/20 08:54 Prinivil PO 20 mg DAILY MARVIN Administration Metformin HCl 500 mg 04/17/20 17:00 04/30/20 08:53 Glucophage PO 500 mg BIDWM MARVIN Administration Metoprolol Tartrate 100 mg 04/29/20 21:00 04/30/20 08:55 Lopressor PO 100 mg Q12HR MARVIN Administration Oxycodone HCl 5 mg 04/18/20 00:12 04/18/20 12:56 Roxicodone Ir Tablet PO 5 mg Q4H PRN Administration Pain Rated 4-10 Pramipexole Dihydrochloride 1 mg 04/17/20 21:00 04/29/20 20:23 Mirapex PO 1 mg HS MARVIN Administration Senna/Docusate Sodium 1 tab 04/18/20 09:00 04/30/20 08:54 Senokot S Tablet PO 1 tab DAILY MARVIN Administration Sertraline HCl 150 mg 04/17/20 21:00 04/29/20 20:23 Zoloft PO 150 mg HS MARVIN Administration Tolnaftate 1 applic 04/18/20 09:00 04/30/20 08:55 Tolnaftate 1% Powder TOPICAL 1 applic Q12HR MARVIN Administration Radiology Results: ITS Impressions Hip/Pelvis X-Ray 04/19/20 10:04 IMPRESSION: 1. Moderate osteoarthritis of the hips. Labs Labs: Laboratory Results - last 24 hr 04/29/20 04/30/20 17:12 06:49 POC Capillary Glucose 177 H 111 H
--- NOTE | 2020-04-30 13:19 | PCDIET ---
Nutrition Follow-Up Complete: Nutrition Diagnosis: Decreased sodium/fat needs related to cardiovascular disease as evidenced by hx CAD/CABG, CVA. Nutrition Goal: Patient to consume 75% of meals or greater. Goal met. Patient consuming 100% of most meals on diabetic diet. Patient having issues with fecal incontinence during self-cath; was started on Fibercon to bulk stools, and patient feels it has helped. Denies other c/o. Choosing some high fat options (i.e. fried fish, croatian fries). Encouraged patient to adhere to heart healthy diet halfway to reduce risk of future cardiovascular events. Last recorded weight is 103.9 kg which is stable. Bowel Motility: +BM on 04/29/20. Labs Reviewed: Glu (111) Meds Noted: Fibercon, Glucophage, Senna Additional Notes: No documented skin breakdown. Will continue to monitor with same goal. Nutrition Monitoring and Evaluation: Follow up in 7 days.
[2020-04-30 17:31] LABS: Glucose Point of Care 132 (65-105)
[2020-04-30] MEDS: ATORVASTATIN 40 MG TABLET PO (20:27)
[2020-04-30] MEDS: PRAMIPEXOLE 1 MG TABLET PO (20:27)
[2020-04-30] MEDS: SERTRALINE HCL 50 MG TABLET 150 MG PO (20:27)
[2020-05-01] VITALS (7 sets, daily range): BP systolic 146–170; BP diastolic 51–76; PULSE 52–82; RESP 16–18; TEMP 36–36.8; O2SAT 96–100
[2020-05-01 06:25] LABS: Glucose Point of Care 103 (65-105)
[2020-05-01] MEDS: ISOSORBIDE MONONITRATE 30 MG TAB.ER.24H BY MOUTH (07:49)
[2020-05-01] MEDS: calcium polycarbophiL 625 MG TABLET 1250 MG PO ×2 (07:49→17:25)
[2020-05-01] MEDS: metFORMIN HCL 500 MG TABLET PO ×2 (07:49→17:24)
[2020-05-01] MEDS: APIXABAN 5 MG TABLET PO ×2 (07:49→20:16)
[2020-05-01] MEDS: GABAPENTIN 100 MG CAPSULE 200 MG PO ×3 (07:49→17:25)
[2020-05-01] MEDS: TOLNAFTATE 1% POWDER 45 GM BTL 1 APPLIC TOPICAL ×2 (07:50→20:46)
[2020-05-01] MEDS: SENNA/DOCUSATE SODIUM TABLET 1 TAB PO (07:50)
[2020-05-01] MEDS: METOPROLOL TARTRATE 50 MG TAB 100 MG PO ×2 (07:50→20:15)
[2020-05-01] MEDS: lisinopriL 20 MG TABLET PO (07:50)
[2020-05-01] MEDS: HYDROCORTISONE 1% 30 GM CREAM 1 APPLIC TOPICAL ×2 (07:50→20:19)
--- NOTE | 2020-05-01 08:15 | WPDGIPROGNO ---
Progress Note: A&P Additional Plan Patient comfortable this morning. States his bowel habits return to normal. He no longer loses control of bowel habits with self catheterization. Physical exam reveals him to be alert. Abdomen is soft and nontender. Rectal exam deferred on exam today. Impression 1. Fecal incontinence. This improved on stopping laxatives. And adding fiber to his diet. Given his age would advise screening colonoscopy electively as an outpatient after discharge. It has been more than 10 years since last screening exam. Subjective Date/time seen: 05/01/20 08:15 Objective Data Vital Signs Vital Signs: Vital Signs - 24 hr 04/30/20 08:55 04/30/20 14:00 04/30/20 20:27 Temperature 36.4 C Pulse Rate 68 62 58 L Respiratory Rate 18 Blood Pressure 147/60 H Pulse Oximetry 97 04/30/20 22:00 04/30/20 23:09 05/01/20 02:59 Temperature 36.4 C Pulse Rate 58 L 66 62 Respiratory Rate 21 H 16 16 Blood Pressure 150/59 H Pulse Oximetry 97 95 96 05/01/20 06:00 05/01/20 07:50 Temperature 36.3 C L Pulse Rate 52 L 52 L Respiratory Rate 18 Blood Pressure 170/76 H Pulse Oximetry 98 Intake/Output Intake/Output: Intake & Output 04/28/20 04/29/20 04/30/20 05/01/20 23:59 23:59 23:59 23:59 Intake Total 1220 1220 920 Output Total 350 350 600 Balance 870 870 320 Meds/Results Medications: Active Medications Generic Name Dose Route Start Last Admin Trade Name Keila PRN Reason Stop Dose Admin Acetaminophen 650 mg 04/18/20 00:11 Tylenol Tablet PO Q4H PRN Pain Rated 1-3 Apixaban 5 mg 04/17/20 21:00 05/01/20 07:49 Eliquis PO 5 mg Q12HR MARVIN Administration Atorvastatin Calcium 40 mg 04/17/20 21:00 04/30/20 20:27 Lipitor PO 40 mg HS MARVIN Administration Calcium Polycarbophil 1,250 mg 04/29/20 09:00 05/01/20 07:49 Fiber Con PO 1,250 mg BID MARVIN Administration Gabapentin 200 mg 04/17/20 17:00 05/01/20 07:49 Neurontin PO 200 mg TID MARVIN Administration Glucagon 1 mg 04/17/20 17:29 Glucagon For Inj IM PRN PRN Hypoglycemia Protocol Glucose 15 gm 04/17/20 17:29 Glutose 15 PO PRN PRN Hypoglycemia Protocol Hydrocortisone 1 applic 04/20/20 09:35 05/01/20 07:50 Hydrocortisone 1% Cream TOPICAL 1 applic Q12HR MARVIN Administration Isosorbide Mononitrate 30 mg 04/18/20 09:00 05/01/20 07:49 Imdur BY MOUTH 05/18/20 09:01 30 mg DAILY MARVIN Administration Lisinopril 20 mg 04/18/20 09:00 05/01/20 07:50 Prinivil PO 20 mg DAILY MARVIN Administration Metformin HCl 500 mg 04/17/20 17:00 05/01/20 07:49 Glucophage PO 500 mg BIDWM MARVIN Administration Metoprolol Tartrate 100 mg 04/29/20 21:00 05/01/20 07:50 Lopressor PO 100 mg Q12HR MARVIN Administration Oxycodone HCl 5 mg 04/18/20 00:12 04/18/20 12:56 Roxicodone Ir Tablet PO 5 mg Q4H PRN Administration Pain Rated 4-10 Pramipexole Dihydrochloride 1 mg 04/17/20 21:00 04/30/20 20:27 Mirapex PO 1 mg HS MARVIN Administration Senna/Docusate Sodium 1 tab 04/18/20 09:00 05/01/20 07:50 Senokot S Tablet PO 1 tab DAILY MARVIN Administration Sertraline HCl 150 mg 04/17/20 21:00 04/30/20 20:27 Zoloft PO 150 mg HS MARVIN Administration Tolnaftate 1 applic 04/18/20 09:00 05/01/20 07:50 Tolnaftate 1% Powder TOPICAL 1 applic Q12HR MARVIN Administration Radiology Results: ITS Impressions Hip/Pelvis X-Ray 04/19/20 10:04 IMPRESSION: 1. Moderate osteoarthritis of the hips. Labs Labs: Laboratory Results - last 24 hr 04/30/20 05/01/20 17:05 06:23 POC Capillary Glucose 132 H 103
--- NOTE | 2020-05-01 12:41 | WPDNEURORHBP ---
Subjective Date/time seen: 05/01/20 12:41 Interval history: this 80-year-old gentleman is here after having and stroke which has left him with the left-sided hemiparesis which has significantly improved and he has been walking quite a bit of course with a walker this time. He has been doing the self catheterization also for some time his fecal anti incontinence has improved as the laxative have been stopped and also with the addition of the more fiber in his diet The patient denies any headache nausea vomiting chest pain shortness of breath fever chills sore throat Review of Systems Review of Systems: All systems reviewed & are unremarkable except as noted in HPI and below Functional Status Ambulation Ability Ability to Ambulate 10 Feet: Independent Ability to Ambulate 50 Feet With 2 Turns: Independent Ability to Ambulate 150 Feet: Independent Ambulation Assistive Devices: None Transfers Ability Ability to Transfer In/Out of Chair: Independent Exam Const: General: comfortable and no acute distress HENMT: General nose exam: Normal nares present Mouth: Yes moist mucous membranes Eyes: General: appearance normal, both eyes and all related structures Neck: Neck: supple and no JVD Resp: Effort & Inspection: normal respiratory effort Auscultation: clear to auscultation bilaterally Cardio: Rate: regular rate Rhythm: regular rhythm GI: GI Palp: Yes Soft to palpation Auscultation: normal bowel sounds Skin: General skin exam: normal color and no rashes or lesions noted Neuro: Other: patient is awake well oriented time place and person is speech and language functions normal cranial exam shows normal motor reveals significant improvement in his left-sided weakness Extrem: General: normal to inspection Psych: Mental Status: mental status grossly normal Objective Data Vital Signs Vital Signs: Vital Signs - 24 hr 04/30/20 14:00 04/30/20 20:27 04/30/20 22:00 Temperature 36.4 C 36.4 C Pulse Rate 62 58 L 58 L Respiratory Rate 18 21 H Blood Pressure 147/60 H 150/59 H Pulse Oximetry 97 97 04/30/20 23:09 05/01/20 02:59 05/01/20 06:00 Temperature 36.3 C L Pulse Rate 66 62 52 L Respiratory Rate 16 16 18 Blood Pressure 170/76 H Pulse Oximetry 95 96 98 05/01/20 07:50 Temperature Pulse Rate 52 L Respiratory Rate Blood Pressure Pulse Oximetry Intake/Output Intake/Output: Intake & Output 04/28/20 04/29/20 04/30/20 05/01/20 23:59 23:59 23:59 23:59 Intake Total 1220 1220 920 240 Output Total 350 350 600 Balance 870 870 320 240 Meds/Results Medications: Active Medications Generic Name Dose Route Start Last Admin Trade Name Freq PRN Reason Stop Dose Admin Acetaminophen 650 mg 04/18/20 00:11 Tylenol Tablet PO Q4H PRN Pain Rated 1-3 Apixaban 5 mg 04/17/20 21:00 05/01/20 07:49 Eliquis PO 5 mg Q12HR MARVIN Administration Atorvastatin Calcium 40 mg 04/17/20 21:00 04/30/20 20:27 Lipitor PO 40 mg HS MARVIN Administration Calcium Polycarbophil 1,250 mg 04/29/20 09:00 05/01/20 07:49 Fiber Con PO 1,250 mg BID MARVIN Administration Gabapentin 200 mg 04/17/20 17:00 05/01/20 12:06 Neurontin PO 200 mg TID MARVIN Administration Glucagon 1 mg 04/17/20 17:29 Glucagon For Inj IM PRN PRN Hypoglycemia Protocol Glucose 15 gm 04/17/20 17:29 Glutose 15 PO PRN PRN Hypoglycemia Protocol Hydrocortisone 1 applic 04/20/20 09:35 05/01/20 07:50 Hydrocortisone 1% Cream TOPICAL 1 applic Q12HR MARVIN Administration Isosorbide Mononitrate 30 mg 04/18/20 09:00 05/01/20 07:49 Imdur BY MOUTH 05/18/20 09:01 30 mg DAILY MARVIN Administration Lisinopril 20 mg 04/18/20 09:00 05/01/20 07:50 Prinivil PO 20 mg DAILY MARVIN Administration Metformin HCl 500 mg 04/17/20 17:00 05/01/20 07:49 Glucophage PO 500 mg BIDWM MARVIN Administration Metoprolol Tartrate 100 mg 04/29/20 21:00 05/01/20
--- NOTE | 2020-05-01 13:33 | PCOTNOTE ---
Patient has demonstrated independence with all ADLs and functional mobility this date. Patient placed in the [facility] Program this date. Discussed with patient his goals for the program. Sheet with goals placed in patient's room. Patient verbalized an understanding to the program.
[2020-05-01 17:03] LABS: Glucose Point of Care 111 (65-105)
[2020-05-01] MEDS: SERTRALINE HCL 50 MG TABLET 150 MG PO (20:16)
[2020-05-01] MEDS: ATORVASTATIN 40 MG TABLET PO (20:16)
[2020-05-01] MEDS: PRAMIPEXOLE 1 MG TABLET PO (20:16)
[2020-05-02 03:00] VITALS: PULSE 72; RESP 16; O2SAT 95
[2020-05-02 04:50] LABS: Basophils Absolute Auto 0.1 K/mm3 (0.0-0.1); Basophils Percent Auto 0.6 % (0.2-1.2); Eosinophils Absolute Auto 0.6 K/mm3 (0-0.3); Eosinophils Percent Auto 5.8 % (0-4.4); Hemoglobin 13.2 g/dL (14.0-18.0); Immature Granulocyte Absolute 0.04 K/mm3 (0.00-0.031); Immature Granulocyte Percent A 0.4 % (0-0.5); Lymphocytes Absolute Auto 2.94 K/mm3 (0.9-3.2); Lymphocytes Percent Auto 29.4 % (18.3-44.2); Mean Corpuscular HGB Conc 32.2 g/dl (32-36); Mean Corpuscular Hemoglobin 29.7 pg (26-34); Mean Corpuscular Volume 92.3 fl (80-100); Mean Platelet Volume 10.2 fl (7.4-10.4); Monocytes Absolute Auto 0.8 K/mm3 (0.1-0.6); Monocytes Percent Auto 8.4 % (2.6-8.5); Neutrophils Absolute Auto 5.5 K/mm3 (1.3-6.7); Neutrophils Percent Auto 55.4 % (45.5-73.1); Platelet Count Result 194 k/mm3 (150-375); Red Blood Count 4.44 M/mm3 (4.6-6.20); Red Cell Distribution Width 13.4 % (11.5-14.5)
[2020-05-02 05:02] LABS: Blood Urea Nitrogen 28 mg/dL (9-20); Calcium 9.6 mg/dL (8.4-10.2); Carbon Dioxide 28 mmol/L (22-30); Chloride 103 mmol/L (98-107); Estimated CRCL calculation 47 ml/min; Estimated Glomerular Filt Rate 49; Glucose 127 mg/dL (75-110); Potassium 4.7 mmol/L (3.4-5.0); Sodium 138 mmol/L (137-145)
[2020-05-02 06:00] VITALS: BP 184/70; PULSE 55; RESP 19; TEMP 36.3; O2SAT 100
[2020-05-02 06:49] LABS: Glucose Point of Care 117 (65-105)
[2020-05-02] MEDS: APIXABAN 5 MG TABLET PO (09:33)
[2020-05-02] MEDS: metFORMIN HCL 500 MG TABLET PO (09:33)
[2020-05-02 09:34] VITALS: PULSE 55
[2020-05-02] MEDS: calcium polycarbophiL 625 MG TABLET 1250 MG PO (09:34)
[2020-05-02] MEDS: GABAPENTIN 100 MG CAPSULE 200 MG PO (09:34)
[2020-05-02] MEDS: ISOSORBIDE MONONITRATE 30 MG TAB.ER.24H BY MOUTH (09:34)
[2020-05-02] MEDS: lisinopriL 20 MG TABLET PO (09:34)
[2020-05-02] MEDS: HYDROCORTISONE 1% 30 GM CREAM 1 APPLIC TOPICAL (09:34)
[2020-05-02] MEDS: METOPROLOL TARTRATE 50 MG TAB 100 MG PO (09:34)
[2020-05-02] MEDS: SENNA/DOCUSATE SODIUM TABLET 1 TAB PO (09:34)
[2020-05-02] MEDS: TOLNAFTATE 1% POWDER 45 GM BTL 1 APPLIC TOPICAL (09:35)
--- NOTE | 2020-05-05 14:25 | DS_ITS ---
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 DISCHARGE ACTIVE COMORBID CONDITIONS: 1. Paroxysmal atrial fibrillation. 2. Hypertension. 3. Hyperlipidemia. 4. Type 2 diabetes mellitus. 5. Depression. 6. Status post TURP for the benign prostatic hyperplasia. 7. Chronic kidney disease stage 3. 8. GERD. 9. Sleep apnea. 10. Restless legs syndrome. REASON FOR ADMISSION: A 80-year-old, who had been on Eliquis about a year ago for the paroxysmal atrial fibrillation, presented to the outside hospital on 04/13/2020, with possible stroke. 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 In the local emergency room, initial CT scan was negative for the bleed. 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 Neurology Team was consulted. He was started on aspirin and as of which on April 15. He was started on aspirin on April 14, but Eliquis on 04/15, along with the reinitiation of the lisinopril. He was able to swallow on a regular texture thin liquids. Subsequently, he was noted to have leukocytosis and was started on the antibiotics. His weakness was involving the left upper extremity more than the left lower extremity, so the balance issues were somewhat resolving. His antibiotic was switched to cefdinir for few days, he had not traveled outside the [place] in the past 21 days or had no contact with someone who was ill or travel outside. He was not experiencing any known transmission of the forrest virus. LEVEL OF FUNCTION AT THE TIME OF ADMISSION: The patient required setup for eating, supervision for oral hygiene, substantial assistance for toileting and bathing, supervision for upper body dressing, partial assistance for lower body dressing, footwear, rolling in bed, sit to lying. Substantial assistance for lying to sitting, sit to stand, chair transfer, and toilet transfer. Partial assistance for car transfer and walking only 10 feet. He was unable to walk 50 feet with 2 turns. He was unable to walk 150 feet. He required partial assistance even on walking 10 feet on uneven surfaces, but he was dependent for the curb or step. He was unable to take 4 steps, 12 steps, 50 feet wheelchair or 150 feet wheelchair and he required partial assistance for picking up object. ANTICIPATED REHAB GOALS: Anticipated rehab goals at the time of admission were to make him independent in eating and oral hygiene, required only supervision for toileting and bathing, become independent in upper body dressing, required supervision for lower body dressing, footwear, rolling in bed, required setup for the sitting to lying, lying to sit, supervision for sit to stand, chair transfer toilet transfer, car transfer, 10 feet walking, 50 feet walking with 2 turns, 150 feet walking, 10 feet on uneven surfaces, curb or step, and required only partial assistance for 4 steps and 12 steps, and supervision for picking up object, wheelchair for 50 feet and 150 feet. LEVEL OF FUNCTION AT THE TIME OF DISCHARGE: The patient became independent in all the modalities. HOSPITAL COURSE: During the hospitalization, he was followed only on the rehab physician. He was seen by Dr. Noam Wellington, as a Gastroenterology's consultation mainly for the stool incontinence and was followed by him on 05/01 when his bowel habits had return to normal. He was not
== END 2020-05-02 10:50 | disposition home or self-care (01) | DRG 57 ==
PROVIDERS: Admitting Provider Psychiatry & Neurology Neurology; Visit Provider Psychiatry & Neurology Neurology
DX: I69.352 Hemiplegia and hemiparesis following cerebral infarction affecting left dominant side (principal); I69.322 Dysarthria following cerebral infarction; I69.320 Aphasia following cerebral infarction; R15.9 Full incontinence of feces; E11.22 Type 2 diabetes mellitus with diabetic chronic kidney disease; E11.42 Type 2 diabetes mellitus with diabetic polyneuropathy; E78.5 Hyperlipidemia, unspecified; G47.30 Sleep apnea, unspecified; I48.91 Unspecified atrial fibrillation; I12.9 Hypertensive chronic kidney disease with stage 1 through stage 4 chronic kidney disease, or unspecified chronic kidney disease; I25.10 Atherosclerotic heart disease of native coronary artery without angina pectoris; K21.9 Gastro-esophageal reflux disease without esophagitis; M16.0 Bilateral primary osteoarthritis of hip; M47.816 Spondylosis without myelopathy or radiculopathy, lumbar region; M47.812 Spondylosis without myelopathy or radiculopathy, cervical region; N18.3 Chronic kidney disease, stage 3 (moderate); N31.9 Neuromuscular dysfunction of bladder, unspecified; N40.0 Benign prostatic hyperplasia without lower urinary tract symptoms; Z96.651 Presence of right artificial knee joint; Z79.84 Long term (current) use of oral hypoglycemic drugs; Z87.891 Personal history of nicotine dependence; Z90.79 Acquired absence of other genital organ(s)
CPT/HCPCS: 36415; 73521; 80048; 80061; 81001; 83036; 85025; 92523; 94660; 97110; 97116; 97161; 97166; 97530; 97535; 97542; A9270; J1815